=== PATIENT | female | born 1975 | race Two or more races ===

== ENCOUNTER 2019-04-28 11:38 | Emergency (ER) | payer OTHER ==
[~2019-04-28] VITALS: Ht 157.5 cm; Wt 79.4 kg
[2019-04-28 12:01] VITALS: BP 129/79
[2019-04-28] MEDS ORDERED: KETOROLAC TROMETH 60MG/2ML VIAL IM ONE (12:30)
== END 2019-04-28 13:56 | disposition home or self-care (01) ==
LOC: ER 11:38
DX: G56.01 Carpal tunnel syndrome, right upper limb (principal); M54.2 Cervicalgia; E11.9 Type 2 diabetes mellitus without complications
CPT/HCPCS: 29125; 73110; 73130; 96372; 99283; J1885

== ENCOUNTER 2019-10-23 14:28 | Emergency (ER) | payer MEDICAID ==
[~2019-10-23] VITALS: Ht 157.5 cm; Wt 75.7 kg
[2019-10-23 15:48] VITALS: BP 126/78
== END 2019-10-23 16:50 | disposition home or self-care (01) ==
LOC: ER 14:28
DX: H66.93 Otitis media, unspecified, bilateral (principal)

== ENCOUNTER 2022-05-21 08:47 | Inpatient (IN) | payer MEDICAID, OTHER ==
[2022-05-21] VITALS (34 sets, daily range): BP systolic 78–164; BP diastolic 35–62
[~2022-05-21] VITALS: Ht 157.5 cm; Wt 66.6 kg
[2022-05-21] MEDS ORDERED: SODIUM BICARBONATE 8.4% INJ 50ML SYRINGE ONE ×2 (09:00→09:38)
[2022-05-21] MEDS ORDERED: InsuLIN REG 1unit/0.01ml Soln (100units/ml) IV ONE ×4 (09:15→17:15)
[2022-05-21] MEDS ORDERED: PIPERACILLIN-TAZOB 3.375GM 100 ML IV ONE (09:15)
[2022-05-21] MEDS ORDERED: SODIUM CHLORIDE 0.9% 2,100 ML IV ONE (09:30)
[2022-05-21] MEDS ORDERED: SODIUM BICARBONATE 8.4 % INJ 50ML VIAL IV ONE ×2 (09:30→21:00)
[2022-05-21] MEDS: SODIUM BICARBONATE 8.4 % INJ 50ML VIAL IV ONE ×2 (09:44→09:58)
[2022-05-21 09:58] LABS: Mean Corpuscular Hgb Conc. 27.7 g/dL (32.0-36.0); Red Blood Cells 4.83 10^6/uL (4.0-5.20)
[2022-05-21 10:00] LABS: Hematocrit 49.8 % (36.0-46.0); Hemoglobin 13.8 g/dL (12.2-16.2); Mean Corpuscular Hemoglobin 28.6 pg (28.0-32.0); Mean Corpuscular Volume 103.1 fL (80.0-100.0); Red Cell Distribution Width 15.1 % (11.8-14.3); White Blood Cell 24.5 10^3/uL (4.4-10.8)
[2022-05-21 10:03] LABS: Basophils % (manual) 0 (0.0-2.0); Blast Cells 0; Eosinophils % (manual) 0 (0-7); Myelocytes % 0; Promyelocytes % 0; Reactive Lymphocytes 0
[2022-05-21 10:21] LABS: Urine Bacteria FEW /hpf (None Seen); Urine Blood 3+ /uL (Negative); Urine Mucus FEW (None Seen); Urine Specific Gravity 1.024 (1.001-1.035); Urine WBC 2 /hpf (0 - 5)
[2022-05-21] MEDS ORDERED: SODIUM CHLORIDE 0.9% 1,000 ML IV ONE ×2 (10:30→12:00)
[2022-05-21 10:47] LABS: Alcohol, Urine < 3.0 mg/dL (0-10); Amphetamine Screen, Urine NEGATIVE (NEGATIVE); Barbiturate Scree,Urine NEGATIVE (NEGATIVE); Cannabinoid Screen, Urine NEGATIVE (NEGATIVE)
[2022-05-21 10:48] LABS: Benzodiazephine Screen, Urine NEGATIVE (NEGATIVE); Cocaine Screen, Urine NEGATIVE (NEGATIVE); Opiate Scree,Urine NEGATIVE (NEGATIVE); Phencyclidine Screen, Urine NEGATIVE (NEGATIVE)
[2022-05-21 11:33] LABS: Band Neutrophils % (manual) 41; Lymphocytes % (manual) 19 (10.0-50.0); Metamyelocytes % 9; Monocytes % (manual) 5 (0-12)
[2022-05-21 11:59] LABS: Basophils # (auto) 0 10 ^3/uL (0-0.2); Basophils % (auto) 0.2 % (0.0-2.0); Eosinophils # (auto) 0.6 10 ^3/uL (0-0.8); Eosinophils % (auto) 2.4 % (0.0-7.0); Hematocrit 47.4 % (36.0-46.0); Hemoglobin 13.1 g/dL (12.2-16.2); Lymphocytes # (auto) 2.5 10 ^3/uL (0.4-5.4); Lymphocytes % (auto) 9.6 % (10.0-50.0); Mean Corpuscular Hemoglobin 28.5 pg (28.0-32.0); Mean Corpuscular Hgb Conc. 27.7 g/dL (32.0-36.0); Mean Corpuscular Volume 102.9 fL (80.0-100.0); Monocytes # (auto) 1.7 10 ^3/uL (0-1.3); Monocytes % (auto) 6.5 % (0.0-12.0); Neutrophils # (auto) 20.9 10 ^3/uL (1.6-8.6); Neutrophils % (auto) 81.3 % (37.0-80.0); Nucleated Red Blood Cells % 0.2 %; Red Blood Cells 4.61 10^6/uL (4.0-5.20); White Blood Cell 25.7 10^3/uL (4.4-10.8)
[2022-05-21] MEDS ORDERED: DEXTROSE (50%) 50ML SYRG IV PRN ×2 (12:00→14:30)
[2022-05-21] MEDS ORDERED: InsuLIN R (HUMAN) 100 UNITS in SODIUM CHL 0.9% 99 ML IV SCH ×2 (12:00→14:30)
[2022-05-21] MEDS: ACCU-CHEK COMFORT CURVE STRIP VI SCH ×9 (12:37→22:35)
[2022-05-21 12:41] LABS: Lactic Acid w/Reflex 4.4 mmol/L (0.4-2.0)
[2022-05-21 12:58] LABS: BUN/Creatinine Ratio 26.4; Magnesium 2.1 mg/dL (1.6-2.6); Phosphorus 1.5 mg/dL (2.5-4.90); Potassium 3.3 mmol/L (3.5-5.1)
[2022-05-21 13:01] LABS: Calcium 5.7 mg/dL (8.5-10.1)
[2022-05-21] MEDS ORDERED: VANCOMYCIN 1GM/250ML 250 ML IV ONE (13:15)
[2022-05-21] MEDS ORDERED: ASPirin 300 MG RECTAL SUPP PR ONE (13:30)
[2022-05-21 13:37] LABS: Alanine Aminotransferase 27 U/L (13-56); Albumin 2.3 g/dL (3.4-5.0); Anion Gap 20 (5-15); Aspartate Aminotransferase 97 U/L (15-37); BUN/Creatinine Ratio 21.1; Blood Urea Nitrogen 50 mg/dL (7-18); Chloride 97 mmol/L (98-107); GFR African American 28 mL/min; GFR Non-African American 23 mL/min; Magnesium 3.5 mg/dL (1.6-2.6); Sodium 122 mmol/L (136-145)
[2022-05-21 13:39] LABS: Alkaline Phosphatase 295 U/L (45-117); Bilirubin, Total 0.5 mg/dL (0.2-1.0); Total Protein 7.3 g/dL (6.4-8.2)
[2022-05-21 13:46] LABS: Carbon Dioxide 5 mmol/L (21-32); Glucose 670 mg/dL (74-106)
[2022-05-21 13:47] LABS: Blood Alcohol < 3.0 mg/dL (0-5); Potassium 3.3 mmol/L (3.5-5.1)
[2022-05-21] MEDS ORDERED: LACTATED RINGER'S 1,000 ML IV SCH (14:30)
[2022-05-21] MEDS ORDERED: MORPHINE SULFATE INJ 2 MG/ml SYRG IV PRN (14:30)
[2022-05-21] MEDS ORDERED: PANTOPRAZOLE 40 MG/10 ML VIAL INJ IV ONE (14:30)
[2022-05-21] MEDS ORDERED: INSULIN LANTUS (GLARGINE) 1 /0.01ml (100units/ml) SC ONE (14:30)
[2022-05-21] MEDS ORDERED: NITROGLYCERIN 0.4 MG SL TAB SL PRN (14:30)
[2022-05-21] MEDS ORDERED: ROCURONIUM 10MG/ML 10ML VIAL IV ONE ×2 (14:43→14:45)
[2022-05-21] MEDS ORDERED: ETOMIDATE (2MG/ML) 20ML VIAL IV ONE ×2 (14:43→14:45)
[2022-05-21] MEDS ORDERED: MIDAZOLAM DRIP 50 mg/50mL 50 ML IV SCH (14:45)
[2022-05-21] MEDS ORDERED: THIAMINE 100mg/ml INJ (200mg/2ml VIAL) IV ONE (14:45)
[2022-05-21] MEDS ORDERED: MIDAZOLAM DRIP 50 mg/50mL 50 ML IV ONE (14:49)
[2022-05-21] MEDS ORDERED: LACTATED RINGER'S 1,000 ML IV ONE ×2 (15:00→17:15)
[2022-05-21] MEDS: PROPOFOL 100 ML IV SCH (15:00)
[2022-05-21] MEDS ORDERED: InsuLIN REG 1unit/0.01ml Soln (100units/ml) ONE (15:10)
[2022-05-21] MEDS ORDERED: LACTATED RINGER'S 500 ML IV ONE (15:15)
[2022-05-21] MEDS: MIDAZOLAM DRIP 50 mg/50mL 50 ML IV SCH (15:24)
[2022-05-21 16:09] LABS: Anion Gap 19 (5-15); BUN/Creatinine Ratio 23.9; Blood Urea Nitrogen 51 mg/dL (7-18); Chloride 114 mmol/L (98-107); GFR African American 32 mL/min; GFR Non-African American 26 mL/min; Magnesium 2.5 mg/dL (1.6-2.6); Phosphorus 1.7 mg/dL (2.5-4.90); Potassium 4.9 mmol/L (3.5-5.1); Sodium 139 mmol/L (136-145)
[2022-05-21 16:47] LABS: Carbon Dioxide 6 mmol/L (21-32); Glucose 699 mg/dL (74-106)
[2022-05-21] MEDS: fentaNYL Drip 2500mCg/250mlNS 250 ML IV SCH (16:53)
[2022-05-21] MEDS ORDERED: NOREPINEPHRINE 8 MG/250ML KIT 250 ML IV ONE (17:13)
[2022-05-21] MEDS ORDERED: SODIUM BICARBONATE 50ML VIAL 50 ML in SOD CHL 0.45% 1,000 ML IV SCH (17:15)
[2022-05-21] MEDS: NOREPINEPHRINE 8 MG/250ML KIT 250 ML IV SCH (17:20)
[2022-05-21] MEDS: PIPERACILLIN-TAZOB 3.375GM 100 ML IV SCH (17:57)
[2022-05-21] MEDS ORDERED: SODIUM CHLORIDE 0.9% 1,000 ML IV SCH (18:00)
[2022-05-21] MEDS ORDERED: SODIUM BICARBONATE 50ML VIAL 100 ML in SOD CHL 0.45% 1,000 ML IV SCH (21:00)
[2022-05-21 22:06] LABS: Anion Gap 15 (5-15); BUN/Creatinine Ratio 21.9; Blood Urea Nitrogen 55 mg/dL (7-18); Calcium 7.9 mg/dL (8.5-10.1); Chloride 118 mmol/L (98-107); GFR African American 26 mL/min; GFR Non-African American 22 mL/min; Potassium 4.7 mmol/L (3.5-5.1); Sodium 141 mmol/L (136-145)
[2022-05-21 22:37] LABS: Carbon Dioxide 8 mmol/L (21-32); Glucose 414 mg/dL (74-106)
[2022-05-22] VITALS (103 sets, daily range): BP systolic 90–133; BP diastolic 28–72
[2022-05-22] MEDS: ACCU-CHEK COMFORT CURVE STRIP VI SCH ×16 (00:17→22:30)
[2022-05-22] MEDS ORDERED: SODIUM BICARBONATE 8.4 % INJ 50ML VIAL IV ONE (01:00)
[2022-05-22] MEDS ORDERED: SODIUM BICARBONATE 8.4% INJ 50ML SYRINGE ONE (01:11)
[2022-05-22] MEDS: SODIUM BICARBONATE 50ML VIAL 150 ML in SOD CHL 0.45% 1,000 ML IV SCH ×2 (01:25→08:40)
[2022-05-22] MEDS: InsuLIN R (HUMAN) 100 UNITS in SODIUM CHL 0.9% 99 ML IV SCH ×2 (01:30→22:43)
[2022-05-22] MEDS: PIPERACILLIN-TAZOB 3.375GM 100 ML IV SCH ×3 (01:41→17:03)
[2022-05-22] MEDS: MIDAZOLAM DRIP 50 mg/50mL 50 ML IV SCH ×4 (04:16→20:55)
[2022-05-22 05:02] LABS: BUN/Creatinine Ratio 21.5; Potassium 3.6 mmol/L (3.5-5.1)
[2022-05-22 05:05] LABS: Albumin 1.7 g/dL (3.4-5.0); Bilirubin, Total 0.4 mg/dL (0.2-1.0); Total Protein 6.3 g/dL (6.4-8.2)
[2022-05-22] MEDS: fentaNYL Drip 2500mCg/250mlNS 250 ML IV SCH ×2 (06:27→19:13)
[2022-05-22] MEDS: NOREPINEPHRINE 8 MG/250ML KIT 250 ML IV SCH ×2 (06:40→22:31)
[2022-05-22 07:34] LABS: Calcium 8.2 mg/dL (8.5-10.1); Potassium 3.4 mmol/L (3.5-5.1)
[2022-05-22 07:36] LABS: BUN/Creatinine Ratio 21.5
[2022-05-22 07:57] LABS: Hematocrit 41.3 % (36.0-46.0); Hemoglobin 13.5 g/dL (12.2-16.2); Mean Corpuscular Hemoglobin 27.5 pg (28.0-32.0); Mean Corpuscular Hgb Conc. 32.8 g/dL (32.0-36.0); Mean Corpuscular Volume 83.7 fL (80.0-100.0); Red Blood Cells 4.93 10^6/uL (4.0-5.20); Red Cell Distribution Width 13.5 % (11.8-14.3); White Blood Cell 19.7 10^3/uL (4.4-10.8)
[2022-05-22 07:59] LABS: Basophils % (manual) 0 (0.0-2.0); Blast Cells 0; Eosinophils % (manual) 0 (0-7); Myelocytes % 0; Promyelocytes % 0; Reactive Lymphocytes 0
[2022-05-22 08:38] LABS: Band Neutrophils % (manual) 32; Lymphocytes % (manual) 5 (10.0-50.0); Metamyelocytes % 7; Monocytes % (manual) 4 (0-12)
[2022-05-22] MEDS: PANTOPRAZOLE 40 MG/10 ML VIAL INJ IV SCH (10:00)
[2022-05-22] MEDS: THIAMINE 100mg/ml INJ (200mg/2ml VIAL) IV SCH (10:00)
[2022-05-22] MEDS: INSULIN LANTUS (GLARGINE) 1 /0.01ml (100units/ml) SC SCH (10:01)
[2022-05-22] MEDS ORDERED: ACETAMINOPHEN 650 MG RECT SUPP PR PRN (11:30)
[2022-05-22 12:28] LABS: Partial Thromboplastin Time 34.9 sec (24.6-33.4)
[2022-05-22] MEDS ORDERED: BUMETANIDE 2.5mg/10ml (0.25 mg/ml) INJ IV ONE (14:15)
[2022-05-22] MEDS ORDERED: SODIUM BICARBONATE 50ML VIAL 100 ML in SOD CHL 0.45% 1,000 ML IV SCH (14:15)
[2022-05-22] MEDS ORDERED: CLINDAMYCIN 600MG IV 50 ML IV ONE (14:15)
[2022-05-22] MEDS: PROPOFOL 100 ML IV SCH (15:00)
[2022-05-22] MEDS: D5W/SOD CHL 0.45% 1,000 ML IV SCH ×2 (16:30→23:26)
[2022-05-22 18:38] LABS: Albumin 1.2 g/dL (3.4-5.0)
[2022-05-22 18:41] LABS: BUN/Creatinine Ratio 17.9
[2022-05-22 18:43] LABS: Bilirubin, Total 0.3 mg/dL (0.2-1.0); Total Protein 4.8 g/dL (6.4-8.2)
[2022-05-22] MEDS ORDERED: LIDOCAINE 1% (LOCAL ANESTH.) PF 5ml SDV ID ONE (18:45)
[2022-05-22 18:47] LABS: Potassium 2.5 mmol/L (3.5-5.1)
[2022-05-22] MEDS ORDERED: POTASSIUM CHL 20MEQ/100ML 300 ML IV ONE (19:01)
[2022-05-22] MEDS: POTASSIUM CHL 20MEQ/100ML 100 ML IV SCH ×3 (19:14→22:45)
[2022-05-22] MEDS: SODIUM CHLOR 0.9% PF (SALINE LOCK) 10ML VIAL/SYR IV SCH (22:29)
[2022-05-22] MEDS: CLINDAMYCIN 600MG IV 50 ML IV SCH (22:30)
[2022-05-23] VITALS (103 sets, daily range): BP systolic 96–129; BP diastolic 38–69
[2022-05-23] MEDS: ACCU-CHEK COMFORT CURVE STRIP VI SCH ×12 (00:07→20:00)
[2022-05-23 00:21] LABS: BUN/Creatinine Ratio 17.2; Calcium 6.9 mg/dL (8.5-10.1); Magnesium 1.6 mg/dL (1.6-2.6); Potassium 3.1 mmol/L (3.5-5.1)
[2022-05-23] MEDS: PIPERACILLIN-TAZOB 3.375GM 100 ML IV SCH ×3 (00:54→17:17)
[2022-05-23] MEDS ORDERED: POTASSIUM CHL 20MEQ/100ML 300 ML IV ONE (01:20)
[2022-05-23] MEDS: POTASSIUM CHL 20MEQ/100ML 100 ML IV SCH ×3 (02:42→05:22)
[2022-05-23] MEDS: MIDAZOLAM DRIP 50 mg/50mL 50 ML IV SCH ×2 (02:51→14:25)
[2022-05-23] MEDS: CLINDAMYCIN 600MG IV 50 ML IV SCH ×2 (05:56→14:04)
[2022-05-23 06:27] LABS: Basophils # (auto) 0 10 ^3/uL (0-0.2); Basophils % (auto) 0.1 % (0.0-2.0); Eosinophils # (auto) 0.1 10 ^3/uL (0-0.8); Eosinophils % (auto) 0.7 % (0.0-7.0); Hematocrit 32.4 % (36.0-46.0); Hemoglobin 10.7 g/dL (12.2-16.2); Lymphocytes # (auto) 0.8 10 ^3/uL (0.4-5.4); Lymphocytes % (auto) 4.9 % (10.0-50.0); Mean Corpuscular Hemoglobin 27.3 pg (28.0-32.0); Mean Corpuscular Volume 82.9 fL (80.0-100.0); Monocytes # (auto) 0.7 10 ^3/uL (0-1.3); Monocytes % (auto) 4.3 % (0.0-12.0); Neutrophils # (auto) 14.2 10 ^3/uL (1.6-8.6); Nucleated Red Blood Cells % 0.3 %; Red Blood Cells 3.91 10^6/uL (4.0-5.20); Red Cell Distribution Width 13.7 % (11.8-14.3); White Blood Cell 15.7 10^3/uL (4.4-10.8)
[2022-05-23 06:46] LABS: BUN/Creatinine Ratio 15.7; Calcium 7.2 mg/dL (8.5-10.1); Potassium 3.7 mmol/L (3.5-5.1)
[2022-05-23] MEDS ORDERED: BUMETANIDE 2.5mg/10ml (0.25 mg/ml) INJ IV ONE (09:45)
[2022-05-23] MEDS: PANTOPRAZOLE 40 MG/10 ML VIAL INJ IV SCH (10:04)
[2022-05-23] MEDS: THIAMINE 100mg/ml INJ (200mg/2ml VIAL) IV SCH (10:04)
[2022-05-23] MEDS: INSULIN LANTUS (GLARGINE) 1 /0.01ml (100units/ml) SC SCH (10:15)
[2022-05-23] MEDS: SODIUM CHLOR 0.9% PF (SALINE LOCK) 10ML VIAL/SYR IV SCH ×2 (10:15→22:00)
[2022-05-23] MEDS: InsuLIN R (HUMAN) 100 UNITS in SODIUM CHL 0.9% 99 ML IV SCH (14:25)
[2022-05-23] MEDS ORDERED: D5W/SOD CHL 0.45% 1,000 ML IV SCH (14:45)
[2022-05-23] MEDS: PROPOFOL 100 ML IV SCH (15:00)
[2022-05-23] MEDS ORDERED: DEXTROSE (50%) 50ML SYRG IV PRN (15:30)
[2022-05-23] MEDS: InsuLIN REG 1unit/0.01ml Soln (100units/ml) SC SCH ×2 (16:19→20:00)
[2022-05-23] MEDS: FUROSEMIDE INJECTION 100 MG in SODIUM CHL 0.9% 100 ML IV SCH (17:12)
[2022-05-23] MEDS: fentaNYL Drip 2500mCg/250mlNS 250 ML IV SCH (17:34)
[2022-05-23] MEDS: ALBUTEROL SULF 2.5 MG/0.5ML(0.5%) NEB SOLN NEB SCH (18:18)
[2022-05-24] VITALS (106 sets, daily range): BP systolic 34–169; BP diastolic 20–91
[2022-05-24] MEDS: CLINDAMYCIN 900MG IV 50 ML IV SCH ×4 (00:10→22:14)
[2022-05-24] MEDS: FUROSEMIDE INJECTION 100 MG in SODIUM CHL 0.9% 100 ML IV SCH ×2 (00:12→01:54)
[2022-05-24] MEDS: ACCU-CHEK COMFORT CURVE STRIP VI SCH ×6 (00:13→20:00)
[2022-05-24] MEDS: InsuLIN REG 1unit/0.01ml Soln (100units/ml) SC SCH ×6 (00:14→20:00)
[2022-05-24] MEDS: ALBUTEROL SULF 2.5 MG/0.5ML(0.5%) NEB SOLN NEB SCH ×4 (00:41→18:52)
[2022-05-24] MEDS: PIPERACILLIN-TAZOB 3.375GM 100 ML IV SCH ×3 (01:56→17:00)
[2022-05-24 04:19] LABS: Hematocrit 30.3 % (36.0-46.0); Hemoglobin 10.1 g/dL (12.2-16.2); Mean Corpuscular Hemoglobin 27.8 pg (28.0-32.0); Mean Corpuscular Hgb Conc. 33.3 g/dL (32.0-36.0); Mean Corpuscular Volume 83.4 fL (80.0-100.0); Red Blood Cells 3.63 10^6/uL (4.0-5.20); Red Cell Distribution Width 14.2 % (11.8-14.3)
[2022-05-24 04:28] LABS: Basophils % (manual) 0 (0.0-2.0); Blast Cells 0; Metamyelocytes % 0; Promyelocytes % 0; Reactive Lymphocytes 0
[2022-05-24 04:39] LABS: Albumin 1.1 g/dL (3.4-5.0); Calcium 6.9 mg/dL (8.5-10.1); Magnesium 1.6 mg/dL (1.6-2.6); Potassium 3.5 mmol/L (3.5-5.1)
[2022-05-24 04:41] LABS: BUN/Creatinine Ratio 14.4
[2022-05-24 04:44] LABS: Bilirubin, Total 0.5 mg/dL (0.2-1.0); Phosphorus 1.7 mg/dL (2.5-4.90); Total Protein 5.2 g/dL (6.4-8.2)
[2022-05-24 06:46] LABS: Band Neutrophils % (manual) 25; Eosinophils % (manual) 2 (0-7); Lymphocytes % (manual) 5 (10.0-50.0); Monocytes % (manual) 3 (0-12); Myelocytes % 1
[2022-05-24] MEDS: MIDAZOLAM DRIP 50 mg/50mL 50 ML IV SCH ×3 (08:00→20:00)
[2022-05-24] MEDS: fentaNYL Drip 2500mCg/250mlNS 250 ML IV SCH ×2 (09:43→20:30)
[2022-05-24] MEDS ORDERED: HEPARIN SODIUM (PORCINE) 5000 UNITS/ML 1ML VIAL IV ONE (09:45)
[2022-05-24] MEDS: SODIUM CHLOR 0.9% PF (SALINE LOCK) 10ML VIAL/SYR IV SCH ×2 (10:00→22:15)
[2022-05-24] MEDS ORDERED: SODIUM CHL 0.9% 1000 ML BAG XX ONE (10:15)
[2022-05-24] MEDS: INSULIN LANTUS (GLARGINE) 1 /0.01ml (100units/ml) SC SCH (10:42)
[2022-05-24] MEDS: THIAMINE 100mg/ml INJ (200mg/2ml VIAL) IV SCH (13:22)
[2022-05-24] MEDS: PANTOPRAZOLE 40 MG/10 ML VIAL INJ IV SCH (13:23)
[2022-05-24] MEDS: NOREPINEPHRINE 8 MG/250ML KIT 250 ML IV SCH (13:56)
[2022-05-24] MEDS: PROPOFOL 100 ML IV SCH (15:00)
[2022-05-24] MEDS: Glucerna 1.2 Cal 1Liter BOTTLE GT SCH (20:00)
[2022-05-25] VITALS (108 sets, daily range): BP systolic 80–186; BP diastolic 36–88
[2022-05-25] MEDS: NOREPINEPHRINE 8 MG/250ML KIT 250 ML IV SCH ×2 (00:01→18:53)
[2022-05-25] MEDS: ALBUTEROL SULF 2.5 MG/0.5ML(0.5%) NEB SOLN NEB SCH ×4 (00:34→18:17)
[2022-05-25] MEDS: PIPERACILLIN-TAZOB 3.375GM 100 ML IV SCH ×3 (01:07→17:11)
[2022-05-25] MEDS: ACCU-CHEK COMFORT CURVE STRIP VI SCH ×6 (04:00→20:00)
[2022-05-25] MEDS: InsuLIN REG 1unit/0.01ml Soln (100units/ml) SC SCH ×6 (04:00→20:00)
[2022-05-25 04:08] LABS: Calcium 6.8 mg/dL (8.5-10.1)
[2022-05-25 04:10] LABS: BUN/Creatinine Ratio 11.3
[2022-05-25 04:12] LABS: Hematocrit 26.3 % (36.0-46.0); Mean Corpuscular Hemoglobin 27.2 pg (28.0-32.0); Mean Corpuscular Hgb Conc. 34.1 g/dL (32.0-36.0); Mean Corpuscular Volume 79.7 fL (80.0-100.0); White Blood Cell 14.9 10^3/uL (4.4-10.8)
[2022-05-25 04:17] LABS: Basophils % (manual) 0 (0.0-2.0); Blast Cells 0; Eosinophils % (manual) 0 (0-7); Myelocytes % 0; Promyelocytes % 0; Reactive Lymphocytes 0
[2022-05-25 04:26] LABS: Potassium 2.9 mmol/L (3.5-5.1)
[2022-05-25 04:51] LABS: Band Neutrophils % (manual) 16; Lymphocytes % (manual) 8 (10.0-50.0); Metamyelocytes % 1; Monocytes % (manual) 5 (0-12)
[2022-05-25] MEDS ORDERED: POTASSIUM CHL 20MEQ/100ML 100 ML IV ONE ×2 (05:30)
[2022-05-25] MEDS: CLINDAMYCIN 900MG IV 50 ML IV SCH ×3 (06:00→21:55)
[2022-05-25] MEDS: MIDAZOLAM DRIP 50 mg/50mL 50 ML IV SCH ×5 (07:00→18:53)
[2022-05-25] MEDS: fentaNYL Drip 2500mCg/250mlNS 250 ML IV SCH ×2 (07:09→18:58)
[2022-05-25] MEDS ORDERED: POTASSIUM PHOSPHATE 44 MEQ in D5W 5% 250 ML IV ONE (09:15)
[2022-05-25 10:00] LABS: BUN/Creatinine Ratio 11.4; Potassium 3.6 mmol/L (3.5-5.1)
[2022-05-25] MEDS: FLORASTOR (S. BOULARDII) 250 MG CAP PO SCH (10:06)
[2022-05-25] MEDS: PANTOPRAZOLE 40 MG/10 ML VIAL INJ IV SCH (10:07)
[2022-05-25] MEDS: THIAMINE 100mg/ml INJ (200mg/2ml VIAL) IV SCH (10:07)
[2022-05-25] MEDS: MAGNESIUM SULFATE 1GM/100ML 100 ML IV SCH ×2 (10:08→11:40)
[2022-05-25] MEDS: SODIUM CHLOR 0.9% PF (SALINE LOCK) 10ML VIAL/SYR IV SCH ×2 (10:09→21:55)
[2022-05-25] MEDS: INSULIN LANTUS (GLARGINE) 1 /0.01ml (100units/ml) SC SCH (10:12)
[2022-05-25] MEDS: PROPOFOL 100 ML IV SCH (15:00)
[2022-05-25 16:32] LABS: Protein, Urine 120.1 mg/dL (0.0-11.9)
[2022-05-25] MEDS: Glucerna 1.2 Cal 1Liter BOTTLE GT SCH (20:00)
[2022-05-26] VITALS (100 sets, daily range): BP systolic 88–141; BP diastolic 39–77
[2022-05-26] MEDS: ALBUTEROL SULF 2.5 MG/0.5ML(0.5%) NEB SOLN NEB SCH ×4 (00:09→18:30)
[2022-05-26] MEDS: PIPERACILLIN-TAZOB 3.375GM 100 ML IV SCH ×3 (01:00→18:53)
[2022-05-26 03:39] LABS: Basophils # (auto) 0 10 ^3/uL (0-0.2); Hemoglobin 7.8 g/dL (12.2-16.2); Lymphocytes # (auto) 1.2 10 ^3/uL (0.4-5.4); Lymphocytes % (auto) 8.7 % (10.0-50.0); Mean Corpuscular Volume 80.8 fL (80.0-100.0); Neutrophils # (auto) 11.3 10 ^3/uL (1.6-8.6); Red Cell Distribution Width 14.3 % (11.8-14.3); White Blood Cell 13.5 10^3/uL (4.4-10.8)
[2022-05-26 03:42] LABS: Basophils % (auto) 0.1 % (0.0-2.0); Eosinophils # (auto) 0.2 10 ^3/uL (0-0.8); Eosinophils % (auto) 1.2 % (0.0-7.0); Hematocrit 22.3 % (36.0-46.0); Mean Corpuscular Hemoglobin 28.2 pg (28.0-32.0); Mean Corpuscular Hgb Conc. 34.9 g/dL (32.0-36.0); Monocytes # (auto) 0.9 10 ^3/uL (0-1.3); Monocytes % (auto) 6.4 % (0.0-12.0); Neutrophils % (auto) 83.6 % (37.0-80.0); Nucleated Red Blood Cells % 0.1 %; Red Blood Cells 2.76 10^6/uL (4.0-5.20)
[2022-05-26 03:56] LABS: Calcium 6.5 mg/dL (8.5-10.1); Potassium 3.7 mmol/L (3.5-5.1)
[2022-05-26] MEDS: ACCU-CHEK COMFORT CURVE STRIP VI SCH ×6 (04:00→20:00)
[2022-05-26] MEDS: InsuLIN REG 1unit/0.01ml Soln (100units/ml) SC SCH ×6 (04:01→20:30)
[2022-05-26 04:06] LABS: BUN/Creatinine Ratio 11.4; Bilirubin, Total 0.5 mg/dL (0.2-1.0); Magnesium 2.4 mg/dL (1.6-2.6); Phosphorus 3.6 mg/dL (2.5-4.90); Total Protein 5.2 g/dL (6.4-8.2)
[2022-05-26] MEDS: CLINDAMYCIN 900MG IV 50 ML IV SCH ×3 (06:24→22:15)
[2022-05-26] MEDS: MIDAZOLAM DRIP 50 mg/50mL 50 ML IV SCH ×3 (06:40→13:01)
[2022-05-26] MEDS: fentaNYL Drip 2500mCg/250mlNS 250 ML IV SCH ×2 (06:40→19:01)
[2022-05-26] MEDS ORDERED: SODIUM CHL 0.9% 1000 ML BAG XX ONE (09:30)
[2022-05-26] MEDS: FLORASTOR (S. BOULARDII) 250 MG CAP PO SCH (09:45)
[2022-05-26] MEDS: THIAMINE 100mg/ml INJ (200mg/2ml VIAL) IV SCH (09:46)
[2022-05-26] MEDS: PANTOPRAZOLE 40 MG/10 ML VIAL INJ IV SCH (09:46)
[2022-05-26] MEDS: SODIUM CHLOR 0.9% PF (SALINE LOCK) 10ML VIAL/SYR IV SCH ×2 (10:00→22:15)
[2022-05-26] MEDS ORDERED: VANCOMYCIN PER PHARMACY 0 MG IV SCH (12:15)
[2022-05-26] MEDS: LACTULOSE 20Gm/30ML SOLN PO SCH ×2 (13:01→19:02)
[2022-05-26] MEDS ORDERED: VANCOMYCIN 1GM/250ML 250 ML IV ONE (13:45)
[2022-05-26] MEDS: PROPOFOL 100 ML IV SCH (15:00)
[2022-05-26] MEDS: MUPIROCIN 2% OINT 15gm or 22gm FOR MRSA NARES EACHNOSTRI SCH (22:14)
[2022-05-27] VITALS (107 sets, daily range): BP systolic 98–142; BP diastolic 48–81
[2022-05-27] MEDS: ACCU-CHEK COMFORT CURVE STRIP VI SCH ×6 (00:22→21:28)
[2022-05-27] MEDS: InsuLIN REG 1unit/0.01ml Soln (100units/ml) SC SCH ×6 (00:23→21:26)
[2022-05-27] MEDS: ALBUTEROL SULF 2.5 MG/0.5ML(0.5%) NEB SOLN NEB SCH ×4 (00:38→18:49)
[2022-05-27] MEDS: PIPERACILLIN-TAZOB 3.375GM 100 ML IV SCH ×3 (02:49→18:51)
[2022-05-27 03:37] LABS: Basophils # (auto) 0 10 ^3/uL (0-0.2); Eosinophils # (auto) 0.1 10 ^3/uL (0-0.8); Eosinophils % (auto) 0.8 % (0.0-7.0); Hemoglobin 7.4 g/dL (12.2-16.2); White Blood Cell 16.4 10^3/uL (4.4-10.8)
[2022-05-27 03:39] LABS: Basophils % (auto) 0.2 % (0.0-2.0); Hematocrit 22.2 % (36.0-46.0); Lymphocytes % (auto) 6.2 % (10.0-50.0); Mean Corpuscular Hemoglobin 27.2 pg (28.0-32.0); Mean Corpuscular Hgb Conc. 33.2 g/dL (32.0-36.0); Mean Corpuscular Volume 81.9 fL (80.0-100.0); Monocytes # (auto) 0.7 10 ^3/uL (0-1.3); Monocytes % (auto) 4.5 % (0.0-12.0); Neutrophils # (auto) 14.5 10 ^3/uL (1.6-8.6); Neutrophils % (auto) 88.3 % (37.0-80.0); Red Blood Cells 2.71 10^6/uL (4.0-5.20); Red Cell Distribution Width 14.4 % (11.8-14.3)
[2022-05-27 03:52] LABS: INR 1.11 (0.9-1.15); Partial Thromboplastin Time 37.9 sec (24.6-33.4)
[2022-05-27 04:08] LABS: Calcium 6.1 mg/dL (8.5-10.1); Potassium 3.6 mmol/L (3.5-5.1)
[2022-05-27 04:11] LABS: BUN/Creatinine Ratio 11.7; Bilirubin, Total 0.5 mg/dL (0.2-1.0); Total Protein 5.3 g/dL (6.4-8.2)
[2022-05-27] MEDS: LACTULOSE 20Gm/30ML SOLN PO SCH ×4 (06:00→23:53)
[2022-05-27] MEDS: CLINDAMYCIN 900MG IV 50 ML IV SCH (06:00)
[2022-05-27] MEDS: SODIUM CHLOR 0.9% PF (SALINE LOCK) 10ML VIAL/SYR IV SCH ×2 (08:39→23:52)
[2022-05-27] MEDS: PANTOPRAZOLE 40 MG/10 ML VIAL INJ IV SCH (08:54)
[2022-05-27] MEDS: MUPIROCIN 2% OINT 15gm or 22gm FOR MRSA NARES EACHNOSTRI SCH ×2 (08:54→23:52)
[2022-05-27] MEDS: THIAMINE 100mg/ml INJ (200mg/2ml VIAL) IV SCH (08:54)
[2022-05-27] MEDS: FLORASTOR (S. BOULARDII) 250 MG CAP PO SCH (08:55)
[2022-05-27] MEDS ORDERED: VANCOMYCIN 1GM/250ML 250 ML IV ONE (11:00)
[2022-05-27] MEDS: INSULIN LANTUS (GLARGINE) 1 /0.01ml (100units/ml) SC SCH (11:36)
[2022-05-27] MEDS: PROPOFOL 100 ML IV SCH (13:04)
[2022-05-27] MEDS: MIDAZOLAM DRIP 50 mg/50mL 50 ML IV SCH ×2 (13:21→21:34)
[2022-05-27] MEDS ORDERED: metroNIDAZOLE 500 MG TAB PO ONE (13:30)
[2022-05-27] MEDS ORDERED: FLUCONAZOLE 200MG/100ML 100 ML IV ONE (13:30)
[2022-05-27] MEDS: NOREPINEPHRINE 8 MG/250ML KIT 250 ML IV SCH (15:51)
[2022-05-27] MEDS: metroNIDAZOLE 500 MG TAB PO SCH ×2 (18:51→23:53)
[2022-05-28] VITALS (99 sets, daily range): BP systolic 114–166; BP diastolic 61–90
[2022-05-28] MEDS: InsuLIN REG 1unit/0.01ml Soln (100units/ml) SC SCH ×6 (00:03→20:07)
[2022-05-28] MEDS: ACCU-CHEK COMFORT CURVE STRIP VI SCH ×6 (00:03→20:21)
[2022-05-28] MEDS: ALBUTEROL SULF 2.5 MG/0.5ML(0.5%) NEB SOLN NEB SCH ×4 (00:21→18:00)
[2022-05-28] MEDS: PIPERACILLIN-TAZOB 3.375GM 100 ML IV SCH ×2 (01:43→09:15)
[2022-05-28 03:40] LABS: Red Blood Cells 3.45 10^6/uL (4.0-5.20)
[2022-05-28 03:42] LABS: Hematocrit 27.9 % (36.0-46.0); Hemoglobin 9.3 g/dL (12.2-16.2); Mean Corpuscular Hemoglobin 26.9 pg (28.0-32.0); Mean Corpuscular Hgb Conc. 33.2 g/dL (32.0-36.0); Mean Corpuscular Volume 80.9 fL (80.0-100.0); Red Cell Distribution Width 14.4 % (11.8-14.3); White Blood Cell 22.4 10^3/uL (4.4-10.8)
[2022-05-28 03:53] LABS: Basophils % (manual) 0 (0.0-2.0); Blast Cells 0; Metamyelocytes % 0; Promyelocytes % 0; Reactive Lymphocytes 0
[2022-05-28 04:01] LABS: Albumin 1.2 g/dL (3.4-5.0); Calcium 6.7 mg/dL (8.5-10.1); Potassium 4.3 mmol/L (3.5-5.1)
[2022-05-28 04:04] LABS: Bilirubin, Total 0.5 mg/dL (0.2-1.0); Total Protein 6.1 g/dL (6.4-8.2)
[2022-05-28] MEDS: fentaNYL Drip 2500mCg/250mlNS 250 ML IV SCH (05:32)
[2022-05-28] MEDS: MIDAZOLAM DRIP 50 mg/50mL 50 ML IV SCH ×2 (05:38→20:29)
[2022-05-28] MEDS: metroNIDAZOLE 500 MG TAB PO SCH ×4 (06:00→23:36)
[2022-05-28] MEDS: LACTULOSE 20Gm/30ML SOLN PO SCH ×2 (06:00→12:00)
[2022-05-28 06:29] LABS: Band Neutrophils % (manual) 8; Eosinophils % (manual) 1 (0-7); Lymphocytes % (manual) 12 (10.0-50.0); Monocytes % (manual) 4 (0-12); Myelocytes % 4
[2022-05-28] MEDS ORDERED: CEFEPIME 1 GM in SODIUM CHL 0.9% 50 ML IV ONE (10:00)
[2022-05-28] MEDS ORDERED: FLUCONAZOLE 200MG/100ML 100 ML IV SCH (10:00)
[2022-05-28] MEDS: PANTOPRAZOLE 40 MG/10 ML VIAL INJ IV SCH (10:45)
[2022-05-28] MEDS: FLORASTOR (S. BOULARDII) 250 MG CAP PO SCH (10:45)
[2022-05-28] MEDS: THIAMINE 100mg/ml INJ (200mg/2ml VIAL) IV SCH (10:46)
[2022-05-28] MEDS: SODIUM CHLOR 0.9% PF (SALINE LOCK) 10ML VIAL/SYR IV SCH ×2 (10:46→23:04)
[2022-05-28] MEDS: MUPIROCIN 2% OINT 15gm or 22gm FOR MRSA NARES EACHNOSTRI SCH ×2 (10:46→23:04)
[2022-05-28] MEDS: INSULIN LANTUS (GLARGINE) 1 /0.01ml (100units/ml) SC SCH (10:49)
[2022-05-28] MEDS: PROPOFOL 100 ML IV SCH (15:00)
[2022-05-28] MEDS: NOREPINEPHRINE 8 MG/250ML KIT 250 ML IV SCH (17:15)
[2022-05-28] MEDS ORDERED: fentaNYL CITRATE 100 MCG/2 ML VL ONE (17:25)
[2022-05-28] MEDS ORDERED: ONDANSETRON HCL 4 MG/2 ML VIAL ONE (17:25)
[2022-05-28] MEDS ORDERED: KETAMINE HCL 10 ML ONE (17:25)
[2022-05-28] MEDS ORDERED: MIDAZOLAM HCL 2MG/2ML 2ml VIAL (1mg/ml) ONE (17:25)
[2022-05-28] MEDS ORDERED: PROPOFOL 10 MG/ML 20 ML IV ONE (17:25)
[2022-05-28] MEDS ORDERED: GLYCOPYRROLATE 0.2 MG/ML 1ML VIAL ONE (17:25)
[2022-05-29] VITALS (103 sets, daily range): BP systolic 116–182; BP diastolic 60–86
[2022-05-29] MEDS: ALBUTEROL SULF 2.5 MG/0.5ML(0.5%) NEB SOLN NEB SCH ×4 (00:33→18:46)
[2022-05-29 00:58] LABS: Hematocrit 26.6 % (36.0-46.0); Hemoglobin 8.8 g/dL (12.2-16.2)
[2022-05-29] MEDS: ACCU-CHEK COMFORT CURVE STRIP VI SCH ×6 (03:33→20:12)
[2022-05-29] MEDS: InsuLIN REG 1unit/0.01ml Soln (100units/ml) SC SCH ×6 (03:33→20:18)
[2022-05-29] MEDS: fentaNYL Drip 2500mCg/250mlNS 250 ML IV SCH (03:34)
[2022-05-29 04:03] LABS: Hematocrit 25.6 % (36.0-46.0); Hemoglobin 8.5 g/dL (12.2-16.2); Mean Corpuscular Hemoglobin 27.5 pg (28.0-32.0); Mean Corpuscular Hgb Conc. 33.3 g/dL (32.0-36.0); Mean Corpuscular Volume 82.7 fL (80.0-100.0); Red Blood Cells 3.09 10^6/uL (4.0-5.20); Red Cell Distribution Width 14.9 % (11.8-14.3); White Blood Cell 24.5 10^3/uL (4.4-10.8)
[2022-05-29 04:21] LABS: Albumin 1.1 g/dL (3.4-5.0); Basophils % (manual) 0 (0.0-2.0); Blast Cells 0; Calcium 6.5 mg/dL (8.5-10.1); Potassium 4.2 mmol/L (3.5-5.1); Promyelocytes % 0; Reactive Lymphocytes 0
[2022-05-29 04:27] LABS: BUN/Creatinine Ratio 9.6; Bilirubin, Total 0.5 mg/dL (0.2-1.0); Total Protein 5.9 g/dL (6.4-8.2)
[2022-05-29] MEDS: metroNIDAZOLE 500 MG TAB PO SCH ×3 (05:32→19:55)
[2022-05-29 06:28] LABS: Band Neutrophils % (manual) 15; Eosinophils % (manual) 3 (0-7); Lymphocytes % (manual) 6 (10.0-50.0); Metamyelocytes % 1; Monocytes % (manual) 2 (0-12); Myelocytes % 6
[2022-05-29] MEDS ORDERED: SODIUM CHL 0.9% 1000 ML BAG XX ONE (07:00)
[2022-05-29] MEDS: FLORASTOR (S. BOULARDII) 250 MG CAP PO SCH (10:18)
[2022-05-29] MEDS: MUPIROCIN 2% OINT 15gm or 22gm FOR MRSA NARES EACHNOSTRI SCH ×2 (10:19→21:12)
[2022-05-29] MEDS: SODIUM CHLOR 0.9% PF (SALINE LOCK) 10ML VIAL/SYR IV SCH ×2 (10:32→21:12)
[2022-05-29] MEDS: INSULIN LANTUS (GLARGINE) 1 /0.01ml (100units/ml) SC SCH (10:37)
[2022-05-29] MEDS: MIDAZOLAM DRIP 50 mg/50mL 50 ML IV SCH (10:51)
[2022-05-29] MEDS: THIAMINE 100mg/ml INJ (200mg/2ml VIAL) IV SCH (13:31)
[2022-05-29] MEDS: PANTOPRAZOLE 40 MG/10 ML VIAL INJ IV SCH (13:31)
[2022-05-29] MEDS ORDERED: VANCOMYCIN 1GM/250ML 250 ML IV ONE ×2 (14:00→16:00)
[2022-05-29] MEDS: PROPOFOL 100 ML IV SCH (15:00)
[2022-05-29] MEDS: CEFEPIME 1GM/ 50ML 50 ML IV SCH (15:21)
[2022-05-29] MEDS: NOREPINEPHRINE 8 MG/250ML KIT 250 ML IV SCH (17:15)
[2022-05-29] MEDS ORDERED: EPOETIN ALFA-EPBX 10,000 UNIT/1ML VIAL SC ONE (21:00)
[2022-05-30] VITALS (102 sets, daily range): BP systolic 117–212; BP diastolic 63–99
[2022-05-30] MEDS: metroNIDAZOLE 500 MG TAB PO SCH ×4 (00:12→17:33)
[2022-05-30] MEDS: ALBUTEROL SULF 2.5 MG/0.5ML(0.5%) NEB SOLN NEB SCH ×4 (00:20→18:40)
[2022-05-30] MEDS: MIDAZOLAM DRIP 50 mg/50mL 50 ML IV SCH (00:21)
[2022-05-30] MEDS: ACCU-CHEK COMFORT CURVE STRIP VI SCH ×6 (01:51→20:53)
[2022-05-30] MEDS: fentaNYL Drip 2500mCg/250mlNS 250 ML IV SCH (04:07)
[2022-05-30] MEDS: InsuLIN REG 1unit/0.01ml Soln (100units/ml) SC SCH ×6 (04:49→20:53)
[2022-05-30 05:18] LABS: Hematocrit 23.3 % (36.0-46.0); Hemoglobin 7.8 g/dL (12.2-16.2); Mean Corpuscular Hemoglobin 27.5 pg (28.0-32.0); Mean Corpuscular Hgb Conc. 33.7 g/dL (32.0-36.0); Mean Corpuscular Volume 81.4 fL (80.0-100.0); Red Blood Cells 2.86 10^6/uL (4.0-5.20); Red Cell Distribution Width 14.5 % (11.8-14.3); White Blood Cell 22.3 10^3/uL (4.4-10.8)
[2022-05-30 05:24] LABS: Basophils % (manual) 0 (0.0-2.0); Blast Cells 0; Metamyelocytes % 0; Promyelocytes % 0; Reactive Lymphocytes 0
[2022-05-30 05:29] LABS: BUN/Creatinine Ratio 9.7; Calcium 6.9 mg/dL (8.5-10.1); Potassium 3.8 mmol/L (3.5-5.1)
[2022-05-30 06:36] LABS: Band Neutrophils % (manual) 2; Eosinophils % (manual) 1 (0-7); Lymphocytes % (manual) 7 (10.0-50.0); Monocytes % (manual) 4 (0-12); Myelocytes % 4
[2022-05-30] MEDS: PANTOPRAZOLE 40 MG/10 ML VIAL INJ IV SCH (10:12)
[2022-05-30] MEDS: THIAMINE 100mg/ml INJ (200mg/2ml VIAL) IV SCH (10:12)
[2022-05-30] MEDS: FLORASTOR (S. BOULARDII) 250 MG CAP PO SCH (10:12)
[2022-05-30] MEDS: SODIUM CHLOR 0.9% PF (SALINE LOCK) 10ML VIAL/SYR IV SCH ×2 (10:12→22:25)
[2022-05-30] MEDS: MUPIROCIN 2% OINT 15gm or 22gm FOR MRSA NARES EACHNOSTRI SCH ×2 (10:12→22:26)
[2022-05-30] MEDS: CEFEPIME 1GM/ 50ML 50 ML IV SCH ×2 (10:20→22:25)
[2022-05-30] MEDS: INSULIN LANTUS (GLARGINE) 1 /0.01ml (100units/ml) SC SCH (11:40)
[2022-05-30] MEDS: LABETALOL HCL 5 MG/ML 4ML SYRINGE IV PRN ×2 (14:51→20:48)
[2022-05-30] MEDS: PROPOFOL 100 ML IV SCH (15:00)
[2022-05-30] MEDS: NOREPINEPHRINE 8 MG/250ML KIT 250 ML IV SCH (16:49)
[2022-05-30] MEDS: MUPIROCIN 2% OINT 15gm or 22gm TOP SCH (22:26)
[2022-05-31] VITALS (88 sets, daily range): BP systolic 104–190; BP diastolic 48–97
[2022-05-31] MEDS: ALBUTEROL SULF 2.5 MG/0.5ML(0.5%) NEB SOLN NEB SCH ×4 (00:23→18:16)
[2022-05-31] MEDS: ACCU-CHEK COMFORT CURVE STRIP VI SCH ×7 (00:25→23:57)
[2022-05-31] MEDS: metroNIDAZOLE 500 MG TAB PO SCH ×4 (00:25→18:43)
[2022-05-31] MEDS: Glucerna 1.2 Cal 1Liter BOTTLE GT SCH (00:27)
[2022-05-31] MEDS: InsuLIN REG 1unit/0.01ml Soln (100units/ml) SC SCH ×7 (04:00→23:57)
[2022-05-31 04:37] LABS: Basophils # (auto) 0.1 10 ^3/uL (0-0.2); Basophils % (auto) 0.5 % (0.0-2.0); Eosinophils # (auto) 0.1 10 ^3/uL (0-0.8); Eosinophils % (auto) 0.5 % (0.0-7.0); Hematocrit 22.4 % (36.0-46.0); Hemoglobin 7.3 g/dL (12.2-16.2); Lymphocytes # (auto) 0.9 10 ^3/uL (0.4-5.4); Lymphocytes % (auto) 4.9 % (10.0-50.0); Mean Corpuscular Hemoglobin 27.1 pg (28.0-32.0); Mean Corpuscular Hgb Conc. 32.7 g/dL (32.0-36.0); Mean Corpuscular Volume 83.1 fL (80.0-100.0); Monocytes # (auto) 1.1 10 ^3/uL (0-1.3); Monocytes % (auto) 5.5 % (0.0-12.0); Neutrophils % (auto) 88.6 % (37.0-80.0); Red Cell Distribution Width 14.8 % (11.8-14.3); White Blood Cell 19.2 10^3/uL (4.4-10.8)
[2022-05-31 05:03] LABS: BUN/Creatinine Ratio 10.1; Calcium 6.9 mg/dL (8.5-10.1); Potassium 3.8 mmol/L (3.5-5.1)
[2022-05-31] MEDS ORDERED: SODIUM CHL 0.9% 1000 ML BAG XX ONE (07:00)
[2022-05-31] MEDS: CEFEPIME 1GM/ 50ML 50 ML IV SCH ×2 (10:42→22:00)
[2022-05-31] MEDS: MUPIROCIN 2% OINT 15gm or 22gm FOR MRSA NARES EACHNOSTRI SCH (10:42)
[2022-05-31] MEDS: SODIUM CHLOR 0.9% PF (SALINE LOCK) 10ML VIAL/SYR IV SCH ×2 (10:43→22:00)
[2022-05-31] MEDS: FLORASTOR (S. BOULARDII) 250 MG CAP PO SCH (10:43)
[2022-05-31] MEDS: MUPIROCIN 2% OINT 15gm or 22gm TOP SCH ×2 (10:43→22:00)
[2022-05-31] MEDS: PANTOPRAZOLE 40 MG/10 ML VIAL INJ IV SCH (10:43)
[2022-05-31] MEDS: INSULIN LANTUS (GLARGINE) 1 /0.01ml (100units/ml) SC SCH (11:06)
[2022-05-31] MEDS ORDERED: BUMETANIDE 2.5mg/10ml (0.25 mg/ml) INJ IV ONE (14:45)
[2022-05-31] MEDS: PROPOFOL 100 ML IV SCH (15:00)
[2022-05-31] MEDS: MIDAZOLAM DRIP 50 mg/50mL 50 ML IV SCH (15:00)
[2022-05-31] MEDS: fentaNYL Drip 2500mCg/250mlNS 250 ML IV SCH (15:00)
[2022-05-31] MEDS: LABETALOL HCL 5 MG/ML 4ML SYRINGE IV PRN (15:05)
[2022-05-31] MEDS: NOREPINEPHRINE 8 MG/250ML KIT 250 ML IV SCH (17:15)
[2022-05-31] MEDS ORDERED: EPOETIN ALFA-EPBX 10,000 UNIT/1ML VIAL SC ONE (21:00)
[2022-06-01] VITALS (96 sets, daily range): BP systolic 91–188; BP diastolic 55–109
[2022-06-01] MEDS: ALBUTEROL SULF 2.5 MG/0.5ML(0.5%) NEB SOLN NEB SCH ×4 (00:20→18:27)
[2022-06-01] MEDS: CEFEPIME 1GM/ 50ML 50 ML IV SCH ×2 (02:05→22:11)
[2022-06-01 04:16] LABS: Hemoglobin 7.7 g/dL (12.2-16.2); White Blood Cell 17.5 10^3/uL (4.4-10.8)
[2022-06-01 04:18] LABS: Mean Corpuscular Hemoglobin 27.8 pg (28.0-32.0); Mean Corpuscular Hgb Conc. 33.6 g/dL (32.0-36.0); Mean Corpuscular Volume 82.7 fL (80.0-100.0); Red Blood Cells 2.78 10^6/uL (4.0-5.20); Red Cell Distribution Width 14.3 % (11.8-14.3)
[2022-06-01] MEDS: ACCU-CHEK COMFORT CURVE STRIP VI SCH ×6 (04:22→23:50)
[2022-06-01] MEDS: InsuLIN REG 1unit/0.01ml Soln (100units/ml) SC SCH ×6 (04:23→23:53)
[2022-06-01 04:27] LABS: Blast Cells 0; Metamyelocytes % 0; Promyelocytes % 0; Reactive Lymphocytes 0
[2022-06-01 04:36] LABS: BUN/Creatinine Ratio 9.5; Calcium 7.5 mg/dL (8.5-10.1)
[2022-06-01] MEDS: metroNIDAZOLE 500 MG TAB PO SCH ×5 (06:00→23:50)
[2022-06-01] MEDS: FLORASTOR (S. BOULARDII) 250 MG CAP PO SCH (09:57)
[2022-06-01] MEDS: PANTOPRAZOLE 40 MG/10 ML VIAL INJ IV SCH (09:57)
[2022-06-01] MEDS: MUPIROCIN 2% OINT 15gm or 22gm TOP SCH ×2 (09:58→23:06)
[2022-06-01] MEDS: SODIUM CHLOR 0.9% PF (SALINE LOCK) 10ML VIAL/SYR IV SCH ×2 (09:58→22:15)
[2022-06-01] MEDS: INSULIN LANTUS (GLARGINE) 1 /0.01ml (100units/ml) SC SCH (10:05)
[2022-06-01] MEDS ORDERED: BUMETANIDE 2.5mg/10ml (0.25 mg/ml) INJ IV ONE (10:30)
[2022-06-01 10:55] LABS: Band Neutrophils % (manual) 6; Basophils % (manual) 2 (0.0-2.0); Eosinophils % (manual) 1 (0-7); Lymphocytes % (manual) 7 (10.0-50.0); Monocytes % (manual) 7 (0-12); Myelocytes % 1
[2022-06-01] MEDS ORDERED: EPINEPHrine HCL 0.5 ML NEB NEB ONE (11:45)
[2022-06-01] MEDS ORDERED: DexAMETHasone SOD PHOS 4 MG/1ML SDV INJ ONE (11:46)
[2022-06-01] MEDS ORDERED: ROCURONIUM 10MG/ML 10ML VIAL IV ONE (11:56)
[2022-06-01] MEDS ORDERED: ETOMIDATE (2MG/ML) 20ML VIAL IV ONE (11:56)
[2022-06-01] MEDS: PROPOFOL 100 ML IV SCH (15:00)
[2022-06-01] MEDS: MIDAZOLAM DRIP 50 mg/50mL 50 ML IV SCH (15:00)
[2022-06-01] MEDS: fentaNYL Drip 2500mCg/250mlNS 250 ML IV SCH (15:21)
[2022-06-01] MEDS ORDERED: VANCOMYCIN 500 MG in D5W 5% 100 ML IV ONE (15:30)
[2022-06-01] MEDS: NOREPINEPHRINE 8 MG/250ML KIT 250 ML IV SCH (17:15)
[2022-06-02] VITALS (90 sets, daily range): BP systolic 105–174; BP diastolic 37–104
[2022-06-02] MEDS: ALBUTEROL SULF 2.5 MG/0.5ML(0.5%) NEB SOLN NEB SCH ×4 (00:14→18:22)
[2022-06-02] MEDS: metroNIDAZOLE 500 MG TAB PO SCH ×3 (05:00→18:13)
[2022-06-02] MEDS: ACCU-CHEK COMFORT CURVE STRIP VI SCH ×5 (05:06→20:00)
[2022-06-02] MEDS: InsuLIN REG 1unit/0.01ml Soln (100units/ml) SC SCH ×5 (05:11→20:00)
[2022-06-02] MEDS: fentaNYL Drip 2500mCg/250mlNS 250 ML IV SCH ×2 (05:12→21:50)
[2022-06-02 05:28] LABS: Hemoglobin 8.4 g/dL (12.2-16.2); Mean Corpuscular Hemoglobin 27.7 pg (28.0-32.0); Mean Corpuscular Hgb Conc. 33.4 g/dL (32.0-36.0); Red Blood Cells 3.02 10^6/uL (4.0-5.20); Red Cell Distribution Width 14.8 % (11.8-14.3); White Blood Cell 19.2 10^3/uL (4.4-10.8)
[2022-06-02 05:38] LABS: Basophils % (manual) 0 (0.0-2.0); Blast Cells 0; Eosinophils % (manual) 0 (0-7); Promyelocytes % 0; Reactive Lymphocytes 0
[2022-06-02 06:00] LABS: Albumin 1.4 g/dL (3.4-5.0); Calcium 7.5 mg/dL (8.5-10.1); Potassium 3.7 mmol/L (3.5-5.1)
[2022-06-02 06:11] LABS: BUN/Creatinine Ratio 9.9; Bilirubin, Total 0.4 mg/dL (0.2-1.0); Total Protein 6.5 g/dL (6.4-8.2)
[2022-06-02 08:34] LABS: Band Neutrophils % (manual) 2; Lymphocytes % (manual) 18 (10.0-50.0); Metamyelocytes % 4; Monocytes % (manual) 10 (0-12); Myelocytes % 2
[2022-06-02] MEDS ORDERED: SODIUM CHL 0.9% 1000 ML BAG XX ONE (08:45)
[2022-06-02] MEDS: PANTOPRAZOLE 40 MG/10 ML VIAL INJ IV SCH (10:29)
[2022-06-02] MEDS: CEFEPIME 1GM/ 50ML 50 ML IV SCH (10:29)
[2022-06-02] MEDS: FLORASTOR (S. BOULARDII) 250 MG CAP PO SCH (10:30)
[2022-06-02] MEDS: SODIUM CHLOR 0.9% PF (SALINE LOCK) 10ML VIAL/SYR IV SCH ×2 (10:30→22:24)
[2022-06-02] MEDS: MUPIROCIN 2% OINT 15gm or 22gm TOP SCH ×2 (10:30→22:24)
[2022-06-02] MEDS: INSULIN LANTUS (GLARGINE) 1 /0.01ml (100units/ml) SC SCH (10:40)
[2022-06-02] MEDS ORDERED: CEFEPIME 1GM/ 50ML 50 ML IV ONE (14:00)
[2022-06-02] MEDS ORDERED: Glucerna 1.2 Cal 1Liter BOTTLE GT SCH (14:00)
[2022-06-02] MEDS: PROPOFOL 100 ML IV SCH (15:00)
[2022-06-02] MEDS: MIDAZOLAM DRIP 50 mg/50mL 50 ML IV SCH (15:00)
[2022-06-02] MEDS: NOREPINEPHRINE 8 MG/250ML KIT 250 ML IV SCH (17:15)
[2022-06-02] MEDS ORDERED: EPOETIN ALFA-EPBX 10,000 UNIT/1ML VIAL SC ONE (21:00)
[2022-06-03] VITALS (99 sets, daily range): BP systolic 99–201; BP diastolic 35–107
[2022-06-03] MEDS: ACCU-CHEK COMFORT CURVE STRIP VI SCH ×6 (00:14→19:49)
[2022-06-03] MEDS: metroNIDAZOLE 500 MG TAB PO SCH ×4 (00:14→17:32)
[2022-06-03] MEDS: ALBUTEROL SULF 2.5 MG/0.5ML(0.5%) NEB SOLN NEB SCH ×4 (02:08→18:05)
[2022-06-03 02:13] LABS: Hemoglobin 8.9 g/dL (12.2-16.2); Red Cell Distribution Width 14.6 % (11.8-14.3)
[2022-06-03 02:15] LABS: Hematocrit 27.2 % (36.0-46.0); Mean Corpuscular Hemoglobin 27.7 pg (28.0-32.0); Mean Corpuscular Hgb Conc. 32.8 g/dL (32.0-36.0); Mean Corpuscular Volume 84.4 fL (80.0-100.0); Red Blood Cells 3.22 10^6/uL (4.0-5.20); White Blood Cell 20.3 10^3/uL (4.4-10.8)
[2022-06-03 02:19] LABS: Basophils % (manual) 0 (0.0-2.0); Blast Cells 0; Eosinophils % (manual) 0 (0-7); Metamyelocytes % 0; Myelocytes % 0; Promyelocytes % 0; Reactive Lymphocytes 0
[2022-06-03] MEDS ORDERED: METOPROLOL TARTRATE 1MG/1ML-5ML VIAL IV ONE ×2 (02:20→02:30)
[2022-06-03 02:32] LABS: BUN/Creatinine Ratio 9.8; Calcium 7.8 mg/dL (8.5-10.1); Potassium 4.2 mmol/L (3.5-5.1)
[2022-06-03 02:53] LABS: Band Neutrophils % (manual) 1; Lymphocytes % (manual) 9 (10.0-50.0); Monocytes % (manual) 4 (0-12)
[2022-06-03] MEDS: LABETALOL HCL 5 MG/ML 4ML SYRINGE IV PRN ×3 (03:12→22:22)
[2022-06-03] MEDS: InsuLIN REG 1unit/0.01ml Soln (100units/ml) SC SCH ×6 (04:21→19:53)
[2022-06-03] MEDS: FLORASTOR (S. BOULARDII) 250 MG CAP PO SCH (09:36)
[2022-06-03] MEDS: PANTOPRAZOLE 40 MG/10 ML VIAL INJ IV SCH (09:36)
[2022-06-03] MEDS: CEFEPIME 0.5 GM in D5W 5% 50 ML IV SCH (09:37)
[2022-06-03] MEDS: SODIUM CHLOR 0.9% PF (SALINE LOCK) 10ML VIAL/SYR IV SCH ×2 (09:37→22:20)
[2022-06-03] MEDS: MUPIROCIN 2% OINT 15gm or 22gm TOP SCH ×2 (09:37→22:21)
[2022-06-03] MEDS: INSULIN LANTUS (GLARGINE) 1 /0.01ml (100units/ml) SC SCH (09:58)
[2022-06-03] MEDS: METOPROLOL TARTRATE 25 MG TAB PO SCH ×2 (10:20→22:21)
[2022-06-03] MEDS: fentaNYL Drip 2500mCg/250mlNS 250 ML IV SCH (13:57)
[2022-06-03] MEDS: PROPOFOL 100 ML IV SCH (14:37)
[2022-06-03] MEDS: MIDAZOLAM DRIP 50 mg/50mL 50 ML IV SCH (14:37)
[2022-06-03] MEDS ORDERED: VANCOMYCIN 500 MG in D5W 5% 100 ML IV ONE (17:00)
[2022-06-03] MEDS: NOREPINEPHRINE 8 MG/250ML KIT 250 ML IV SCH (17:15)
[2022-06-04] VITALS (69 sets, daily range): BP systolic 96–186; BP diastolic 48–120
[2022-06-04] MEDS: ALBUTEROL SULF 2.5 MG/0.5ML(0.5%) NEB SOLN NEB SCH ×4 (00:11→18:41)
[2022-06-04] MEDS: ACCU-CHEK COMFORT CURVE STRIP VI SCH ×6 (00:15→23:35)
[2022-06-04] MEDS: metroNIDAZOLE 500 MG TAB PO SCH ×5 (00:15→23:35)
[2022-06-04] MEDS: InsuLIN REG 1unit/0.01ml Soln (100units/ml) SC SCH ×6 (00:25→23:35)
[2022-06-04 03:46] LABS: Hemoglobin 8.4 g/dL (12.2-16.2); Red Blood Cells 2.96 10^6/uL (4.0-5.20)
[2022-06-04 03:48] LABS: Hematocrit 24.8 % (36.0-46.0); Mean Corpuscular Hemoglobin 28.3 pg (28.0-32.0); Mean Corpuscular Hgb Conc. 33.8 g/dL (32.0-36.0); Mean Corpuscular Volume 83.7 fL (80.0-100.0); Red Cell Distribution Width 14.7 % (11.8-14.3)
[2022-06-04] MEDS: LABETALOL HCL 5 MG/ML 4ML SYRINGE IV PRN (03:55)
[2022-06-04 03:56] LABS: Basophils % (manual) 0 (0.0-2.0); Blast Cells 0; Eosinophils % (manual) 0 (0-7); Metamyelocytes % 0; Promyelocytes % 0; Reactive Lymphocytes 0
[2022-06-04 04:00] LABS: Albumin 1.5 g/dL (3.4-5.0); Calcium 7.8 mg/dL (8.5-10.1); Potassium 4.1 mmol/L (3.5-5.1)
[2022-06-04 04:02] LABS: BUN/Creatinine Ratio 10.8
[2022-06-04 04:04] LABS: Bilirubin, Total 0.4 mg/dL (0.2-1.0); Total Protein 6.5 g/dL (6.4-8.2)
[2022-06-04] MEDS: fentaNYL Drip 2500mCg/250mlNS 250 ML IV SCH ×2 (05:50→18:26)
[2022-06-04 06:42] LABS: Band Neutrophils % (manual) 6; Lymphocytes % (manual) 10 (10.0-50.0); Monocytes % (manual) 7 (0-12); Myelocytes % 5
[2022-06-04] MEDS: FLORASTOR (S. BOULARDII) 250 MG CAP PO SCH (08:52)
[2022-06-04] MEDS: PANTOPRAZOLE 40 MG/10 ML VIAL INJ IV SCH (08:52)
[2022-06-04] MEDS: SODIUM CHLOR 0.9% PF (SALINE LOCK) 10ML VIAL/SYR IV SCH ×2 (08:52→21:40)
[2022-06-04] MEDS: MUPIROCIN 2% OINT 15gm or 22gm TOP SCH ×2 (08:52→21:41)
[2022-06-04] MEDS: METOPROLOL TARTRATE 25 MG TAB PO SCH ×2 (08:52→21:41)
[2022-06-04] MEDS: INSULIN LANTUS (GLARGINE) 1 /0.01ml (100units/ml) SC SCH (09:13)
[2022-06-04] MEDS: CEFEPIME 0.5 GM in D5W 5% 50 ML IV SCH (09:54)
[2022-06-04] MEDS: PROPOFOL 100 ML IV SCH (15:00)
[2022-06-04] MEDS: MIDAZOLAM DRIP 50 mg/50mL 50 ML IV SCH (15:00)
[2022-06-04] MEDS ORDERED: SODIUM CHL 0.9% 1000 ML BAG XX ONE (15:00)
[2022-06-04] MEDS ORDERED: DEXTROSE (50%) 50ML SYRG IV PRN (15:30)
[2022-06-04] MEDS: NOREPINEPHRINE 8 MG/250ML KIT 250 ML IV SCH (17:15)
[2022-06-04] MEDS ORDERED: CATHFLO ACTIVASE (ALTEPLASE) 2 MG VIAL IV ONE (17:30)
[2022-06-04] MEDS ORDERED: EPOETIN ALFA-EPBX 10,000 UNIT/1ML VIAL SC ONE (21:00)
[2022-06-05] VITALS (67 sets, daily range): BP systolic 99–216; BP diastolic 52–106
[2022-06-05] MEDS: ALBUTEROL SULF 2.5 MG/0.5ML(0.5%) NEB SOLN NEB SCH ×4 (00:05→17:57)
[2022-06-05 04:00] LABS: Hemoglobin 7.9 g/dL (12.2-16.2)
[2022-06-05 04:02] LABS: Mean Corpuscular Hemoglobin 27.5 pg (28.0-32.0); Mean Corpuscular Hgb Conc. 32.8 g/dL (32.0-36.0); Mean Corpuscular Volume 83.9 fL (80.0-100.0); Red Blood Cells 2.86 10^6/uL (4.0-5.20); Red Cell Distribution Width 14.9 % (11.8-14.3)
[2022-06-05 04:09] LABS: Basophils % (manual) 0 (0.0-2.0); Blast Cells 0; Metamyelocytes % 0; Promyelocytes % 0; Reactive Lymphocytes 0
[2022-06-05 04:23] LABS: BUN/Creatinine Ratio 10.7; Calcium 7.9 mg/dL (8.5-10.1); Potassium 4.2 mmol/L (3.5-5.1)
[2022-06-05 05:01] LABS: Band Neutrophils % (manual) 7; Eosinophils % (manual) 1 (0-7); Lymphocytes % (manual) 10 (10.0-50.0); Monocytes % (manual) 10 (0-12); Myelocytes % 1
[2022-06-05] MEDS: ACCU-CHEK COMFORT CURVE STRIP VI SCH ×4 (05:48→23:59)
[2022-06-05] MEDS: metroNIDAZOLE 500 MG TAB PO SCH ×2 (05:48→12:17)
[2022-06-05] MEDS: InsuLIN REG 1unit/0.01ml Soln (100units/ml) SC SCH ×3 (05:49→18:21)
[2022-06-05] MEDS: fentaNYL Drip 2500mCg/250mlNS 250 ML IV SCH (06:27)
[2022-06-05] MEDS ORDERED: SODIUM CHL 0.9% 1000 ML BAG XX ONE (07:00)
[2022-06-05] MEDS: PANTOPRAZOLE 40 MG/10 ML VIAL INJ IV SCH (09:03)
[2022-06-05] MEDS: FLORASTOR (S. BOULARDII) 250 MG CAP PO SCH (09:04)
[2022-06-05] MEDS: SODIUM CHLOR 0.9% PF (SALINE LOCK) 10ML VIAL/SYR IV SCH ×2 (09:04→21:57)
[2022-06-05] MEDS: CEFEPIME 0.5 GM in D5W 5% 50 ML IV SCH (09:04)
[2022-06-05] MEDS: METOPROLOL TARTRATE 25 MG TAB PO SCH ×2 (09:04→21:57)
[2022-06-05] MEDS: MUPIROCIN 2% OINT 15gm or 22gm TOP SCH ×2 (09:04→21:58)
[2022-06-05] MEDS: INSULIN LANTUS (GLARGINE) 1 /0.01ml (100units/ml) SC SCH (09:22)
[2022-06-05] MEDS: LABETALOL HCL 5 MG/ML 4ML SYRINGE IV PRN ×2 (10:54→21:59)
[2022-06-05] MEDS ORDERED: EPINEPHrine HCL 0.5 ML NEB ONE (11:35)
[2022-06-05] MEDS ORDERED: EPINEPHrine HCL 0.5 ML NEB NEB ONE (11:35)
[2022-06-05] MEDS: MIDAZOLAM DRIP 50 mg/50mL 50 ML IV SCH (15:00)
[2022-06-05] MEDS: PROPOFOL 100 ML IV SCH (15:00)
[2022-06-05] MEDS ORDERED: VANCOMYCIN 500 MG in D5W 5% 100 ML IV ONE (16:00)
[2022-06-05] MEDS: NOREPINEPHRINE 8 MG/250ML KIT 250 ML IV SCH (17:15)
[2022-06-05] MEDS ORDERED: EPOETIN ALFA-EPBX 10,000 UNIT/1ML VIAL SC ONE (21:00)
[2022-06-05] MEDS ORDERED: CEFEPIME 1GM/ 50ML 50 ML IV SCH (22:00)
[2022-06-06] VITALS (35 sets, daily range): BP systolic 112–184; BP diastolic 56–124
[2022-06-06] MEDS: InsuLIN REG 1unit/0.01ml Soln (100units/ml) SC SCH ×5 (00:01→23:40)
[2022-06-06] MEDS: ALBUTEROL SULF 2.5 MG/0.5ML(0.5%) NEB SOLN NEB SCH ×4 (00:03→18:25)
[2022-06-06 03:44] LABS: Hemoglobin 8.4 g/dL (12.2-16.2)
[2022-06-06 03:47] LABS: Hematocrit 25.1 % (36.0-46.0); Mean Corpuscular Hemoglobin 28.3 pg (28.0-32.0); Mean Corpuscular Hgb Conc. 33.4 g/dL (32.0-36.0); Mean Corpuscular Volume 84.7 fL (80.0-100.0); Red Blood Cells 2.96 10^6/uL (4.0-5.20); Red Cell Distribution Width 14.9 % (11.8-14.3); White Blood Cell 13.8 10^3/uL (4.4-10.8)
[2022-06-06 04:05] LABS: Basophils % (manual) 0 (0.0-2.0); Blast Cells 0; Eosinophils % (manual) 0 (0-7); Metamyelocytes % 0; Promyelocytes % 0; Reactive Lymphocytes 0
[2022-06-06 04:14] LABS: Calcium 7.8 mg/dL (8.5-10.1); Potassium 3.9 mmol/L (3.5-5.1)
[2022-06-06 04:17] LABS: BUN/Creatinine Ratio 8.9
[2022-06-06] MEDS: ACCU-CHEK COMFORT CURVE STRIP VI SCH ×4 (05:18→23:38)
[2022-06-06 06:52] LABS: Band Neutrophils % (manual) 10; Myelocytes % 4
[2022-06-06 06:54] LABS: Lymphocytes % (manual) 7 (10.0-50.0); Monocytes % (manual) 11 (0-12)
[2022-06-06] MEDS: PANTOPRAZOLE 40 MG/10 ML VIAL INJ IV SCH (10:22)
[2022-06-06] MEDS: SODIUM CHLOR 0.9% PF (SALINE LOCK) 10ML VIAL/SYR IV SCH ×2 (10:22→22:06)
[2022-06-06] MEDS: INSULIN LANTUS (GLARGINE) 1 /0.01ml (100units/ml) SC SCH (10:23)
[2022-06-06] MEDS: MUPIROCIN 2% OINT 15gm or 22gm TOP SCH ×2 (10:24→22:06)
[2022-06-06] MEDS: METOPROLOL TARTRATE 25 MG TAB PO SCH ×3 (13:23→22:06)
[2022-06-06] MEDS: FLORASTOR (S. BOULARDII) 250 MG CAP PO SCH (13:24)
[2022-06-06] MEDS ORDERED: FUROSEMIDE 40 MG/4 ML VIAL IV ONE (14:30)
[2022-06-06] MEDS: amLODIPine BESYLATE 5 MG TAB PO SCH (16:10)
[2022-06-06 17:17] LABS: BUN/Creatinine Ratio 8.2; Calcium 7.9 mg/dL (8.5-10.1); Potassium 3.7 mmol/L (3.5-5.1)
[2022-06-06] MEDS ORDERED: ALPRAZolam 0.5 MG TAB PO ONE (18:15)
[2022-06-07] VITALS (40 sets, daily range): BP systolic 132–175; BP diastolic 65–108
[2022-06-07 03:49] LABS: Hematocrit 28.6 % (36.0-46.0); Hemoglobin 9.2 g/dL (12.2-16.2); Mean Corpuscular Hemoglobin 27.4 pg (28.0-32.0); Mean Corpuscular Hgb Conc. 32.1 g/dL (32.0-36.0); Mean Corpuscular Volume 85.2 fL (80.0-100.0); Red Blood Cells 3.35 10^6/uL (4.0-5.20); Red Cell Distribution Width 15.3 % (11.8-14.3)
[2022-06-07 04:01] LABS: Basophils % (manual) 0 (0.0-2.0); Blast Cells 0; Eosinophils % (manual) 0 (0-7); Promyelocytes % 0; Reactive Lymphocytes 0
[2022-06-07 04:08] LABS: BUN/Creatinine Ratio 8.5; Calcium 8.1 mg/dL (8.5-10.1); Potassium 3.4 mmol/L (3.5-5.1)
[2022-06-07] MEDS: ACCU-CHEK COMFORT CURVE STRIP VI SCH ×3 (05:35→18:52)
[2022-06-07] MEDS: InsuLIN REG 1unit/0.01ml Soln (100units/ml) SC SCH ×3 (05:37→18:45)
[2022-06-07] MEDS: LABETALOL HCL 5 MG/ML 4ML SYRINGE IV PRN (06:07)
[2022-06-07 07:58] LABS: Band Neutrophils % (manual) 7; Lymphocytes % (manual) 13 (10.0-50.0); Metamyelocytes % 4; Monocytes % (manual) 3 (0-12); Myelocytes % 3
[2022-06-07] MEDS: PANTOPRAZOLE 40 MG/10 ML VIAL INJ IV SCH (10:20)
[2022-06-07] MEDS: SODIUM CHLOR 0.9% PF (SALINE LOCK) 10ML VIAL/SYR IV SCH ×2 (10:20→21:43)
[2022-06-07] MEDS: METOPROLOL TARTRATE 25 MG TAB PO SCH ×2 (10:21→21:43)
[2022-06-07] MEDS: amLODIPine BESYLATE 5 MG TAB PO SCH (10:21)
[2022-06-07] MEDS: FLORASTOR (S. BOULARDII) 250 MG CAP PO SCH (10:21)
[2022-06-07] MEDS: MUPIROCIN 2% OINT 15gm or 22gm TOP SCH ×2 (10:28→21:43)
[2022-06-07] MEDS: INSULIN LANTUS (GLARGINE) 1 /0.01ml (100units/ml) SC SCH (10:41)
[2022-06-07] MEDS: ALBUTEROL SULF 2.5 MG/0.5ML(0.5%) NEB SOLN NEB SCH ×4 (14:24→18:23)
[2022-06-07] MEDS ORDERED: POTASSIUM CHL 20MEQ/100ML 100 ML IV ONE (15:15)
[2022-06-08] VITALS (11 sets, daily range): BP systolic 131–177; BP diastolic 67–93
[2022-06-08] MEDS: ACCU-CHEK COMFORT CURVE STRIP VI SCH ×5 (00:19→23:35)
[2022-06-08] MEDS: ALBUTEROL SULF 2.5 MG/0.5ML(0.5%) NEB SOLN NEB SCH ×4 (00:21→18:52)
[2022-06-08 04:00] LABS: Hematocrit 27.1 % (36.0-46.0); Hemoglobin 8.7 g/dL (12.2-16.2); Mean Corpuscular Hemoglobin 27.1 pg (28.0-32.0); Mean Corpuscular Hgb Conc. 32.2 g/dL (32.0-36.0); Mean Corpuscular Volume 84.4 fL (80.0-100.0); Red Blood Cells 3.22 10^6/uL (4.0-5.20); Red Cell Distribution Width 15.3 % (11.8-14.3); White Blood Cell 11.7 10^3/uL (4.4-10.8)
[2022-06-08 04:18] LABS: Basophils % (manual) 0 (0.0-2.0); Blast Cells 0; Metamyelocytes % 0; Myelocytes % 0; Promyelocytes % 0; Reactive Lymphocytes 0
[2022-06-08 04:22] LABS: Anion Gap 11 (5-15); BUN/Creatinine Ratio 8.6; Blood Urea Nitrogen 31 mg/dL (7-18); Calcium 7.7 mg/dL (8.5-10.1); Carbon Dioxide 26 mmol/L (21-32); Chloride 102 mmol/L (98-107); GFR African American 17 mL/min; GFR Non-African American 14 mL/min; Glucose 168 mg/dL (74-106); Potassium 3.8 mmol/L (3.5-5.1); Sodium 139 mmol/L (136-145)
[2022-06-08] MEDS: InsuLIN REG 1unit/0.01ml Soln (100units/ml) SC SCH ×5 (06:15→23:24)
[2022-06-08] MEDS ORDERED: SODIUM CHL 0.9% 1000 ML BAG XX ONE (07:00)
[2022-06-08] MEDS: amLODIPine BESYLATE 5 MG TAB PO SCH (08:52)
[2022-06-08] MEDS: FLORASTOR (S. BOULARDII) 250 MG CAP PO SCH (08:53)
[2022-06-08] MEDS: METOPROLOL TARTRATE 25 MG TAB PO SCH ×3 (08:53→22:31)
[2022-06-08] MEDS: PANTOPRAZOLE 40 MG/10 ML VIAL INJ IV SCH (08:54)
[2022-06-08 09:13] LABS: Band Neutrophils % (manual) 5; Eosinophils % (manual) 2 (0-7); Lymphocytes % (manual) 18 (10.0-50.0); Monocytes % (manual) 4 (0-12)
[2022-06-08] MEDS: MUPIROCIN 2% OINT 15gm or 22gm TOP SCH ×2 (10:00→22:00)
[2022-06-08] MEDS: INSULIN LANTUS (GLARGINE) 1 /0.01ml (100units/ml) SC SCH (12:08)
[2022-06-08] MEDS: SODIUM CHLOR 0.9% PF (SALINE LOCK) 10ML VIAL/SYR IV SCH ×2 (15:03→22:31)
[2022-06-08] MEDS ORDERED: EPOETIN ALFA-EPBX 10,000 UNIT/1ML VIAL SC ONE (21:00)
[2022-06-09] MEDS: ALBUTEROL SULF 2.5 MG/0.5ML(0.5%) NEB SOLN NEB SCH ×4 (00:48→18:21)
[2022-06-09] MEDS: InsuLIN REG 1unit/0.01ml Soln (100units/ml) SC SCH ×4 (05:39→23:33)
[2022-06-09] MEDS: ACCU-CHEK COMFORT CURVE STRIP VI SCH ×4 (05:40→23:14)
[2022-06-09] MEDS: LABETALOL HCL 5 MG/ML 4ML SYRINGE IV PRN (06:50)
[2022-06-09 06:51] VITALS: BP 175/79
[2022-06-09] MEDS: SODIUM CHLOR 0.9% PF (SALINE LOCK) 10ML VIAL/SYR IV SCH ×2 (10:51→23:11)
[2022-06-09] MEDS: PANTOPRAZOLE 40 MG/10 ML VIAL INJ IV SCH (10:52)
[2022-06-09] MEDS: FLORASTOR (S. BOULARDII) 250 MG CAP PO SCH (10:52)
[2022-06-09] MEDS: FUROSEMIDE 100 MG/10ML VIAL IV SCH (10:55)
[2022-06-09] MEDS: amLODIPine BESYLATE 5 MG TAB PO SCH (10:56)
[2022-06-09] MEDS: METOPROLOL TARTRATE 25 MG TAB PO SCH (11:08)
[2022-06-09] MEDS: INSULIN LANTUS (GLARGINE) 1 /0.01ml (100units/ml) SC SCH (11:22)
[2022-06-09] MEDS: MUPIROCIN 2% OINT 15gm or 22gm TOP SCH ×2 (12:00→23:12)
[2022-06-09 12:10] LABS: Albumin 1.8 g/dL (3.4-5.0); BUN/Creatinine Ratio 10.4; Calcium 7.6 mg/dL (8.5-10.1); Phosphorus 4.1 mg/dL (2.5-4.90); Potassium 3.8 mmol/L (3.5-5.1)
[2022-06-09 13:00] VITALS: BP 164/89
[2022-06-09] MEDS ORDERED: VANCOMYCIN 500 MG in D5W 5% 100 ML IV ONE (16:00)
[2022-06-09 17:00] VITALS: BP 152/93
[2022-06-09 17:10] VITALS: BP 147/85
[2022-06-09 22:17] VITALS: BP 137/79
[2022-06-10] MEDS: ALBUTEROL SULF 2.5 MG/0.5ML(0.5%) NEB SOLN NEB SCH ×4 (00:12→18:46)
[2022-06-10 05:13] VITALS: BP 108/67
[2022-06-10 06:18] LABS: Calcium 7.6 mg/dL (8.5-10.1); Potassium 3.7 mmol/L (3.5-5.1)
[2022-06-10] MEDS: ACCU-CHEK COMFORT CURVE STRIP VI SCH ×4 (06:18→23:54)
[2022-06-10] MEDS: InsuLIN REG 1unit/0.01ml Soln (100units/ml) SC SCH ×4 (06:19→23:55)
[2022-06-10 06:20] LABS: BUN/Creatinine Ratio 11.6
[2022-06-10 06:22] LABS: Bilirubin, Total 0.4 mg/dL (0.2-1.0); Phosphorus 4.3 mg/dL (2.5-4.90); Total Protein 6.5 g/dL (6.4-8.2)
[2022-06-10] MEDS ORDERED: CLINDAMYCIN 600MG IV 50 ML IV ONE (10:15)
[2022-06-10] MEDS: MUPIROCIN 2% OINT 15gm or 22gm TOP SCH ×2 (11:19→22:32)
[2022-06-10] MEDS: SODIUM CHLOR 0.9% PF (SALINE LOCK) 10ML VIAL/SYR IV SCH ×2 (11:19→22:31)
[2022-06-10] MEDS: METOPROLOL TARTRATE 25 MG TAB PO SCH ×2 (11:21→22:31)
[2022-06-10] MEDS: amLODIPine BESYLATE 5 MG TAB PO SCH (11:21)
[2022-06-10] MEDS: PANTOPRAZOLE 40 MG/10 ML VIAL INJ IV SCH (11:22)
[2022-06-10] MEDS: DOXYCYCLINE 100 MG TAB/CAP PO SCH ×2 (11:22→22:32)
[2022-06-10] MEDS: FUROSEMIDE 100 MG/10ML VIAL IV SCH (11:22)
[2022-06-10] MEDS: FLORASTOR (S. BOULARDII) 250 MG CAP PO SCH (11:22)
[2022-06-10] MEDS: INSULIN LANTUS (GLARGINE) 1 /0.01ml (100units/ml) SC SCH (11:41)
[2022-06-10 12:30] VITALS: BP 160/84
[2022-06-10 17:00] VITALS: BP 146/84
[2022-06-10] MEDS: CLINDAMYCIN 600MG IV 50 ML IV SCH (18:27)
[2022-06-10 22:34] VITALS: BP 155/68
[2022-06-11] MEDS: ALBUTEROL SULF 2.5 MG/0.5ML(0.5%) NEB SOLN NEB SCH ×4 (00:44→18:55)
[2022-06-11] MEDS: CLINDAMYCIN 600MG IV 50 ML IV SCH ×3 (01:54→18:03)
[2022-06-11 05:10] VITALS: BP 135/81
[2022-06-11] MEDS: InsuLIN REG 1unit/0.01ml Soln (100units/ml) SC SCH ×3 (05:49→18:03)
[2022-06-11] MEDS: ACCU-CHEK COMFORT CURVE STRIP VI SCH ×3 (05:49→18:03)
[2022-06-11 09:00] VITALS: BP 146/83
[2022-06-11] MEDS: METOPROLOL TARTRATE 25 MG TAB PO SCH ×2 (09:29→21:02)
[2022-06-11] MEDS: DOXYCYCLINE 100 MG TAB/CAP PO SCH ×2 (09:29→21:02)
[2022-06-11] MEDS: FLORASTOR (S. BOULARDII) 250 MG CAP PO SCH (09:30)
[2022-06-11] MEDS: amLODIPine BESYLATE 5 MG TAB PO SCH (09:30)
[2022-06-11] MEDS: PANTOPRAZOLE 40 MG/10 ML VIAL INJ IV SCH (09:30)
[2022-06-11] MEDS: SODIUM CHLOR 0.9% PF (SALINE LOCK) 10ML VIAL/SYR IV SCH ×2 (09:31→21:02)
[2022-06-11] MEDS: FUROSEMIDE 100 MG/10ML VIAL IV SCH (09:31)
[2022-06-11] MEDS: MUPIROCIN 2% OINT 15gm or 22gm TOP SCH (09:43)
[2022-06-11] MEDS: INSULIN LANTUS (GLARGINE) 1 /0.01ml (100units/ml) SC SCH (11:36)
[2022-06-11 12:45] VITALS: BP 146/81
[2022-06-11 13:00] VITALS: BP 135/73
[2022-06-11 17:00] VITALS: BP 132/69
[2022-06-11 23:23] VITALS: BP 121/72
[2022-06-12] MEDS: InsuLIN REG 1unit/0.01ml Soln (100units/ml) SC SCH ×5 (00:33→23:05)
[2022-06-12] MEDS: ALBUTEROL SULF 2.5 MG/0.5ML(0.5%) NEB SOLN NEB SCH ×4 (00:50→19:18)
[2022-06-12] MEDS: CLINDAMYCIN 600MG IV 50 ML IV SCH ×2 (01:39→10:25)
[2022-06-12 06:02] VITALS: BP 138/80
[2022-06-12 06:06] LABS: Hematocrit 30.5 % (36.0-46.0); Mean Corpuscular Hemoglobin 27.8 pg (28.0-32.0); Mean Corpuscular Volume 84.2 fL (80.0-100.0); Red Blood Cells 3.62 10^6/uL (4.0-5.20); Red Cell Distribution Width 15.9 % (11.8-14.3); White Blood Cell 9.4 10^3/uL (4.4-10.8)
[2022-06-12 06:16] LABS: Albumin 2.1 g/dL (3.4-5.0); BUN/Creatinine Ratio 12.8; Bilirubin, Total 0.4 mg/dL (0.2-1.0); Calcium 7.5 mg/dL (8.5-10.1); Potassium 3.4 mmol/L (3.5-5.1)
[2022-06-12] MEDS: ACCU-CHEK COMFORT CURVE STRIP VI SCH ×5 (06:21→23:27)
[2022-06-12 07:11] LABS: Band Neutrophils % (manual) 0; Basophils % (manual) 0 (0.0-2.0); Blast Cells 0; Metamyelocytes % 0; Myelocytes % 0; Promyelocytes % 0; Reactive Lymphocytes 0
[2022-06-12 09:00] VITALS: BP 123/72
[2022-06-12] MEDS: FLORASTOR (S. BOULARDII) 250 MG CAP PO SCH (10:25)
[2022-06-12] MEDS: SODIUM CHLOR 0.9% PF (SALINE LOCK) 10ML VIAL/SYR IV SCH ×2 (10:25→23:01)
[2022-06-12] MEDS: FUROSEMIDE 100 MG/10ML VIAL IV SCH (10:25)
[2022-06-12] MEDS: amLODIPine BESYLATE 5 MG TAB PO SCH (10:26)
[2022-06-12] MEDS: METOPROLOL TARTRATE 25 MG TAB PO SCH ×2 (10:26→22:00)
[2022-06-12] MEDS: DOXYCYCLINE 100 MG TAB/CAP PO SCH ×2 (10:26→23:02)
[2022-06-12] MEDS: INSULIN LANTUS (GLARGINE) 1 /0.01ml (100units/ml) SC SCH (10:35)
[2022-06-12 12:47] LABS: Lymphocytes % (manual) 25 (10.0-50.0)
[2022-06-12 12:48] LABS: Eosinophils % (manual) 5 (0-7); Monocytes % (manual) 17 (0-12)
[2022-06-12 13:00] VITALS: BP 132/59
[2022-06-12] MEDS: CLINDAMYCIN HCL 150 MG CAP PO SCH ×2 (14:09→23:01)
[2022-06-12 17:00] VITALS: BP 128/69
[2022-06-13] MEDS: ALBUTEROL SULF 2.5 MG/0.5ML(0.5%) NEB SOLN NEB SCH ×3 (00:27→18:06)
[2022-06-13] MEDS: CLINDAMYCIN HCL 150 MG CAP PO SCH ×3 (05:44→22:09)
[2022-06-13] MEDS: InsuLIN REG 1unit/0.01ml Soln (100units/ml) SC SCH ×3 (05:45→17:44)
[2022-06-13] MEDS: ACCU-CHEK COMFORT CURVE STRIP VI SCH ×3 (05:48→17:45)
[2022-06-13 06:02] VITALS: BP 116/67
[2022-06-13 07:28] LABS: Albumin 2.3 g/dL (3.4-5.0); Calcium 7.5 mg/dL (8.5-10.1); Potassium 3.5 mmol/L (3.5-5.1)
[2022-06-13 07:30] LABS: BUN/Creatinine Ratio 16.6
[2022-06-13 07:33] LABS: Bilirubin, Total 0.3 mg/dL (0.2-1.0); Total Protein 6.6 g/dL (6.4-8.2)
[2022-06-13 09:00] VITALS: BP 126/82
[2022-06-13] MEDS: SODIUM CHLOR 0.9% PF (SALINE LOCK) 10ML VIAL/SYR IV SCH ×2 (10:49→22:09)
[2022-06-13] MEDS: DOXYCYCLINE 100 MG TAB/CAP PO SCH ×2 (10:49→22:10)
[2022-06-13] MEDS: FLORASTOR (S. BOULARDII) 250 MG CAP PO SCH (10:49)
[2022-06-13] MEDS: amLODIPine BESYLATE 5 MG TAB PO SCH (10:50)
[2022-06-13] MEDS: METOPROLOL TARTRATE 25 MG TAB PO SCH ×2 (10:51→22:10)
[2022-06-13] MEDS: INSULIN LANTUS (GLARGINE) 1 /0.01ml (100units/ml) SC SCH ×2 (11:03→22:12)
[2022-06-13 13:00] VITALS: BP 125/77
[2022-06-13 17:00] VITALS: BP 117/81
[2022-06-14] MEDS: ALBUTEROL SULF 2.5 MG/0.5ML(0.5%) NEB SOLN NEB SCH ×5 (00:06→23:59)
[2022-06-14] MEDS: InsuLIN REG 1unit/0.01ml Soln (100units/ml) SC SCH ×4 (00:47→17:58)
[2022-06-14 04:47] VITALS: BP 128/80
[2022-06-14] MEDS: ACCU-CHEK COMFORT CURVE STRIP VI SCH ×4 (06:00→17:58)
[2022-06-14 06:28] LABS: Albumin 2.3 g/dL (3.4-5.0); BUN/Creatinine Ratio 19.2; Potassium 3.3 mmol/L (3.5-5.1)
[2022-06-14 06:30] LABS: Bilirubin, Total 0.4 mg/dL (0.2-1.0); Total Protein 7.2 g/dL (6.4-8.2)
[2022-06-14] MEDS: CLINDAMYCIN HCL 150 MG CAP PO SCH (06:39)
[2022-06-14 08:53] VITALS: BP 121/72
[2022-06-14] MEDS: SODIUM CHLOR 0.9% PF (SALINE LOCK) 10ML VIAL/SYR IV SCH ×2 (09:11→22:00)
[2022-06-14] MEDS: FLORASTOR (S. BOULARDII) 250 MG CAP PO SCH (09:12)
[2022-06-14] MEDS: METOPROLOL TARTRATE 25 MG TAB PO SCH (09:12)
[2022-06-14] MEDS: amLODIPine BESYLATE 5 MG TAB PO SCH (09:12)
[2022-06-14] MEDS: DOXYCYCLINE 100 MG TAB/CAP PO SCH ×2 (09:13→22:30)
[2022-06-14] MEDS: INSULIN LANTUS (GLARGINE) 1 /0.01ml (100units/ml) SC SCH ×2 (09:14→22:30)
[2022-06-14] MEDS ORDERED: POTASSIUM CHL 20 Meq TABLET PO ONE (11:00)
[2022-06-14] MEDS: SODIUM CHLORIDE 0.9% 1,000 ML IV SCH (12:14)
[2022-06-14 13:11] VITALS: BP 127/70
[2022-06-14] MEDS: CLINDAMYCIN 600MG IV 50 ML IV SCH ×2 (13:31→22:30)
[2022-06-14 15:17] VITALS: BP 127/70
[2022-06-14 17:37] VITALS: BP 118/70
[2022-06-14 19:15] LABS: INR 1.04 (0.9-1.15); Partial Thromboplastin Time 27.2 sec (24.6-33.4)
[2022-06-14 22:00] VITALS: BP 137/71
[2022-06-15] MEDS: ACCU-CHEK COMFORT CURVE STRIP VI SCH ×4 (00:43→17:39)
[2022-06-15] MEDS: InsuLIN REG 1unit/0.01ml Soln (100units/ml) SC SCH ×4 (00:51→17:39)
[2022-06-15] MEDS: SODIUM CHLORIDE 0.9% 1,000 ML IV SCH (03:40)
[2022-06-15 05:00] VITALS: BP 136/76
[2022-06-15] MEDS: CLINDAMYCIN 600MG IV 50 ML IV SCH ×3 (06:25→21:37)
[2022-06-15 06:51] LABS: Albumin 2.3 g/dL (3.4-5.0); BUN/Creatinine Ratio 22.7; Calcium 7.8 mg/dL (8.5-10.1)
[2022-06-15 06:53] LABS: Bilirubin, Total 0.3 mg/dL (0.2-1.0); Total Protein 6.8 g/dL (6.4-8.2)
[2022-06-15] MEDS: ALBUTEROL SULF 2.5 MG/0.5ML(0.5%) NEB SOLN NEB SCH ×3 (06:55→17:55)
[2022-06-15 09:00] VITALS: BP 132/73
[2022-06-15] MEDS: SODIUM CHLOR 0.9% PF (SALINE LOCK) 10ML VIAL/SYR IV SCH ×2 (09:55→21:48)
[2022-06-15] MEDS: FLORASTOR (S. BOULARDII) 250 MG CAP PO SCH (09:56)
[2022-06-15] MEDS: DOXYCYCLINE 100 MG TAB/CAP PO SCH ×2 (09:56→21:37)
[2022-06-15] MEDS: amLODIPine BESYLATE 5 MG TAB PO SCH (09:56)
[2022-06-15] MEDS: INSULIN LANTUS (GLARGINE) 1 /0.01ml (100units/ml) SC SCH ×2 (10:08→21:49)
[2022-06-15] MEDS ORDERED: ceFAZolin 1GM/50ML 100 ML IV ONE (10:41)
[2022-06-15] MEDS ORDERED: fentaNYL CITRATE 100 MCG/2 ML VL ONE (12:06)
[2022-06-15] MEDS ORDERED: MIDAZOLAM HCL 2MG/2ML 2ml VIAL (1mg/ml) ONE (12:06)
[2022-06-15] MEDS ORDERED: DexAMETHasone SOD PHOS 10MG/1ML VIAL INJ ONE (12:14)
[2022-06-15] MEDS ORDERED: PROPOFOL 10 MG/ML 20 ML IV ONE (12:14)
[2022-06-15] MEDS ORDERED: ceFAZolin 1GM VL ONE (12:15)
[2022-06-15] MEDS ORDERED: MIDAZOLAM HCL 2MG/2ML 2ml VIAL (1mg/ml) IV PRN (12:30)
[2022-06-15] MEDS ORDERED: HYDROmorphone HCL 2 MG/ML VL/or syr IV PRN (12:30)
[2022-06-15] MEDS ORDERED: ePHEDrine SULFATE 50 MG/ML AMP IV PRN (12:30)
[2022-06-15] MEDS ORDERED: MORPHINE SULFATE 4 MG/ML SYR/VIAL IV PRN (12:30)
[2022-06-15] MEDS ORDERED: ONDANSETRON HCL 4 MG/2 ML VIAL IV PRN (12:30)
[2022-06-15] MEDS ORDERED: LABETALOL HCL 5 MG/ML 4ML SYRINGE IV PRN (12:30)
[2022-06-15] MEDS ORDERED: ACCU-CHEK COMFORT CURVE STRIP VI ONE (12:30)
[2022-06-15] MEDS: SOD CHL 0.9%/ KCL 20MEQ 1,000 ML IV SCH (14:43)
[2022-06-15 17:00] VITALS: BP 152/75
[2022-06-15 22:00] VITALS: BP 127/74
[2022-06-16] MEDS: ACCU-CHEK COMFORT CURVE STRIP VI SCH ×5 (01:14→22:42)
[2022-06-16] MEDS: InsuLIN REG 1unit/0.01ml Soln (100units/ml) SC SCH ×5 (01:22→22:40)
[2022-06-16 05:00] VITALS: BP 127/69
[2022-06-16 05:11] LABS: Basophils # (auto) 0.2 10 ^3/uL (0-0.2); Eosinophils # (auto) 0.2 10 ^3/uL (0-0.8); Eosinophils % (auto) 2.3 % (0.0-7.0); Hematocrit 28.2 % (36.0-46.0); Hemoglobin 9.1 g/dL (12.2-16.2); Lymphocytes # (auto) 1.6 10 ^3/uL (0.4-5.4); Mean Corpuscular Hemoglobin 27.6 pg (28.0-32.0); Mean Corpuscular Hgb Conc. 32.4 g/dL (32.0-36.0); Mean Corpuscular Volume 85.3 fL (80.0-100.0); Monocytes % (auto) 12.4 % (0.0-12.0); Neutrophils % (auto) 63.3 % (37.0-80.0); Red Blood Cells 3.31 10^6/uL (4.0-5.20); Red Cell Distribution Width 15.7 % (11.8-14.3); White Blood Cell 7.9 10^3/uL (4.4-10.8)
[2022-06-16 05:15] LABS: BUN/Creatinine Ratio 19.6; Calcium 7.7 mg/dL (8.5-10.1); Potassium 3.5 mmol/L (3.5-5.1)
[2022-06-16] MEDS: CLINDAMYCIN 600MG IV 50 ML IV SCH ×3 (05:22→22:37)
[2022-06-16] MEDS: SOD CHL 0.9%/ KCL 20MEQ 1,000 ML IV SCH ×2 (05:30→19:15)
[2022-06-16] MEDS: ALBUTEROL SULF 2.5 MG/0.5ML(0.5%) NEB SOLN NEB SCH ×4 (06:30→23:55)
[2022-06-16 09:00] VITALS: BP 143/76
[2022-06-16] MEDS: SODIUM CHLOR 0.9% PF (SALINE LOCK) 10ML VIAL/SYR IV SCH ×2 (12:11→22:37)
[2022-06-16] MEDS: FLORASTOR (S. BOULARDII) 250 MG CAP PO SCH (12:34)
[2022-06-16] MEDS: DOXYCYCLINE 100 MG TAB/CAP PO SCH ×2 (12:34→22:37)
[2022-06-16] MEDS: amLODIPine BESYLATE 5 MG TAB PO SCH (12:37)
[2022-06-16] MEDS: INSULIN LANTUS (GLARGINE) 1 /0.01ml (100units/ml) SC SCH ×2 (12:44→22:39)
[2022-06-16 13:00] VITALS: BP 147/85
[2022-06-16 17:00] VITALS: BP 137/83
[2022-06-16 22:00] VITALS: BP 102/58
[2022-06-16] MEDS: TEMAZEPAM 15 MG CAP PO PRN (22:43)
[2022-06-17] MEDS: SOD CHL 0.9%/ KCL 20MEQ 1,000 ML IV SCH ×2 (03:45→17:46)
[2022-06-17 04:32] VITALS: BP 134/78
[2022-06-17] MEDS: InsuLIN REG 1unit/0.01ml Soln (100units/ml) SC SCH ×3 (06:00→18:09)
[2022-06-17] MEDS: ACCU-CHEK COMFORT CURVE STRIP VI SCH ×3 (06:26→18:07)
[2022-06-17] MEDS: CLINDAMYCIN 600MG IV 50 ML IV SCH ×3 (06:26→22:18)
[2022-06-17] MEDS: ALBUTEROL SULF 2.5 MG/0.5ML(0.5%) NEB SOLN NEB SCH ×3 (06:42→19:04)
[2022-06-17 08:07] VITALS: BP 134/78
[2022-06-17 09:00] VITALS: BP 149/89
[2022-06-17] MEDS ORDERED: HYDROcodone-ACET 5/325MG TAB PO PRN (10:00)
[2022-06-17] MEDS: FLORASTOR (S. BOULARDII) 250 MG CAP PO SCH (11:30)
[2022-06-17] MEDS: DOXYCYCLINE 100 MG TAB/CAP PO SCH ×2 (11:30→22:18)
[2022-06-17] MEDS: INSULIN LANTUS (GLARGINE) 1 /0.01ml (100units/ml) SC SCH ×2 (11:30→22:20)
[2022-06-17] MEDS: amLODIPine BESYLATE 5 MG TAB PO SCH (11:31)
[2022-06-17] MEDS: SODIUM CHLOR 0.9% PF (SALINE LOCK) 10ML VIAL/SYR IV SCH ×2 (11:32→22:00)
[2022-06-17 13:01] VITALS: BP 143/88
[2022-06-17 17:00] VITALS: BP 117/71
[2022-06-17 22:00] VITALS: BP 135/82
[2022-06-18] MEDS: ACCU-CHEK COMFORT CURVE STRIP VI SCH ×5 (00:13→23:49)
[2022-06-18] MEDS: InsuLIN REG 1unit/0.01ml Soln (100units/ml) SC SCH ×5 (00:15→23:42)
[2022-06-18] MEDS ORDERED: ALBUTEROL SULF 2.5 MG/0.5ML(0.5%) NEB SOLN NEB PRN (01:00)
[2022-06-18 05:00] VITALS: BP 131/80
[2022-06-18] MEDS: CLINDAMYCIN 600MG IV 50 ML IV SCH (06:37)
[2022-06-18] MEDS: SOD CHL 0.9%/ KCL 20MEQ 1,000 ML IV SCH (06:37)
[2022-06-18 09:00] VITALS: BP 133/82
[2022-06-18] MEDS: SODIUM CHLOR 0.9% PF (SALINE LOCK) 10ML VIAL/SYR IV SCH ×2 (10:16→23:12)
[2022-06-18] MEDS: FLORASTOR (S. BOULARDII) 250 MG CAP PO SCH (10:16)
[2022-06-18] MEDS: amLODIPine BESYLATE 5 MG TAB PO SCH (10:16)
[2022-06-18] MEDS: DOXYCYCLINE 100 MG TAB/CAP PO SCH (10:17)
[2022-06-18] MEDS: INSULIN LANTUS (GLARGINE) 1 /0.01ml (100units/ml) SC SCH ×2 (10:23→23:42)
[2022-06-18] MEDS ORDERED: VANCOMYCIN PER PHARMACY 0 MG IV SCH (11:00)
[2022-06-18] MEDS ORDERED: cefTRIAXone 1GM/50ML D5W 50 ML IV ONE (11:00)
[2022-06-18] MEDS ORDERED: VANCOMYCIN 1GM/250ML 250 ML IV ONE (12:00)
[2022-06-18] MEDS ORDERED: ENOXAPARIN SOD 30 MG/0.3 ML SYRINGE SC ONE (12:30)
[2022-06-18 13:00] VITALS: BP 133/72
[2022-06-18 17:00] VITALS: BP 154/87
[2022-06-18] MEDS: TEMAZEPAM 15 MG CAP PO PRN (22:15)
[2022-06-18 23:02] VITALS: BP 135/82
[2022-06-19] MEDS: ACCU-CHEK COMFORT CURVE STRIP VI SCH ×4 (05:19→22:26)
[2022-06-19] MEDS: InsuLIN REG 1unit/0.01ml Soln (100units/ml) SC SCH ×4 (05:19→22:50)
[2022-06-19 05:37] VITALS: BP 143/82
[2022-06-19 06:52] LABS: Basophils # (auto) 0.2 10 ^3/uL (0-0.2); Basophils % (auto) 2.2 % (0.0-2.0); Eosinophils # (auto) 0.2 10 ^3/uL (0-0.8); Eosinophils % (auto) 2.3 % (0.0-7.0); Hemoglobin 8.9 g/dL (12.2-16.2); Lymphocytes # (auto) 1.4 10 ^3/uL (0.4-5.4); Lymphocytes % (auto) 17.2 % (10.0-50.0); Mean Corpuscular Hemoglobin 27.7 pg (28.0-32.0); Monocytes # (auto) 0.9 10 ^3/uL (0-1.3); Monocytes % (auto) 11.2 % (0.0-12.0); Neutrophils # (auto) 5.3 10 ^3/uL (1.6-8.6); Neutrophils % (auto) 67.1 % (37.0-80.0); Nucleated Red Blood Cells % 0.1 %; Red Blood Cells 3.21 10^6/uL (4.0-5.20); Red Cell Distribution Width 15.1 % (11.8-14.3); White Blood Cell 7.9 10^3/uL (4.4-10.8)
[2022-06-19 07:00] LABS: BUN/Creatinine Ratio 21.1; Calcium 7.6 mg/dL (8.5-10.1); Potassium 3.7 mmol/L (3.5-5.1)
[2022-06-19 09:00] VITALS: BP 156/90
[2022-06-19] MEDS: SODIUM CHLOR 0.9% PF (SALINE LOCK) 10ML VIAL/SYR IV SCH ×2 (10:00→22:25)
[2022-06-19] MEDS ORDERED: ENOXAPARIN SOD 30 MG/0.3 ML SYRINGE SC SCH (10:00)
[2022-06-19] MEDS: amLODIPine BESYLATE 5 MG TAB PO SCH (10:20)
[2022-06-19] MEDS: cefTRIAXone 1GM/50ML D5W 50 ML IV SCH (10:20)
[2022-06-19] MEDS: INSULIN LANTUS (GLARGINE) 1 /0.01ml (100units/ml) SC SCH ×2 (12:13→22:50)
[2022-06-19 13:00] VITALS: BP 142/89
[2022-06-19] MEDS ORDERED: VANCOMYCIN 1GM/250ML 250 ML IV SCH (15:00)
[2022-06-19 17:00] VITALS: BP 127/92
[2022-06-19 21:51] VITALS: BP 147/102
[2022-06-19] MEDS: LINEZOLID 600MG/300ML 300 ML IV SCH (22:26)
[2022-06-19] MEDS: TEMAZEPAM 15 MG CAP PO PRN (22:53)
[2022-06-20 05:00] VITALS: BP 118/70
[2022-06-20] MEDS: ACCU-CHEK COMFORT CURVE STRIP VI SCH ×3 (05:51→18:05)
[2022-06-20] MEDS: InsuLIN REG 1unit/0.01ml Soln (100units/ml) SC SCH ×3 (05:59→18:55)
[2022-06-20 09:00] VITALS: BP 135/55
[2022-06-20] MEDS: SODIUM CHLOR 0.9% PF (SALINE LOCK) 10ML VIAL/SYR IV SCH ×2 (10:00→21:50)
[2022-06-20] MEDS: cefTRIAXone 1GM/50ML D5W 50 ML IV SCH (10:41)
[2022-06-20] MEDS: amLODIPine BESYLATE 5 MG TAB PO SCH (10:42)
[2022-06-20] MEDS: INSULIN LANTUS (GLARGINE) 1 /0.01ml (100units/ml) SC SCH ×2 (10:53→21:58)
[2022-06-20] MEDS: LINEZOLID 600MG/300ML 300 ML IV SCH ×2 (11:55→21:50)
[2022-06-20 13:00] VITALS: BP 107/77
[2022-06-20] MEDS ORDERED: FLUCONAZOLE 100 MG TAB PO ONE (16:45)
[2022-06-20 22:00] VITALS: BP_SYST 118; BP_SYST 166; BP_DIAS 103; BP_DIAS 60
[2022-06-20] MEDS: TEMAZEPAM 15 MG CAP PO PRN (23:44)
[2022-06-21] MEDS: InsuLIN REG 1unit/0.01ml Soln (100units/ml) SC SCH ×5 (00:24→23:45)
[2022-06-21] MEDS: ACCU-CHEK COMFORT CURVE STRIP VI SCH ×5 (00:25→23:34)
[2022-06-21 05:00] VITALS: BP 127/80
[2022-06-21 08:40] VITALS: BP 140/92
[2022-06-21] MEDS: cefTRIAXone 1GM/50ML D5W 50 ML IV SCH (10:07)
[2022-06-21] MEDS: SODIUM CHLOR 0.9% PF (SALINE LOCK) 10ML VIAL/SYR IV SCH ×2 (10:07→21:57)
[2022-06-21] MEDS: FLUCONAZOLE 100 MG TAB PO SCH (10:08)
[2022-06-21] MEDS: amLODIPine BESYLATE 5 MG TAB PO SCH (10:09)
[2022-06-21] MEDS: INSULIN LANTUS (GLARGINE) 1 /0.01ml (100units/ml) SC SCH ×2 (10:23→22:25)
[2022-06-21] MEDS: LINEZOLID 600MG/300ML 300 ML IV SCH ×2 (11:05→21:57)
[2022-06-21] MEDS ORDERED: CIPROFLOXACIN 400MG/200ML 200 ML IV ONE (11:45)
[2022-06-21 12:10] VITALS: BP 163/91
[2022-06-21 16:40] VITALS: BP 149/77
[2022-06-21] MEDS: ACETAMINOPHEN 500 MG TAB PO PRN (17:49)
[2022-06-21] MEDS ORDERED: CIPROFLOXACIN 400MG/200ML 200 ML IV SCH (21:00)
[2022-06-21] MEDS: TEMAZEPAM 15 MG CAP PO PRN (21:57)
[2022-06-21] MEDS: PIPERACILLIN-TAZOB 3.375GM 100 ML IV SCH (21:57)
[2022-06-21 22:00] VITALS: BP 134/95
[2022-06-22 05:00] VITALS: BP 127/81
[2022-06-22] MEDS: ACETAMINOPHEN 500 MG TAB PO PRN (05:29)
[2022-06-22] MEDS: ACCU-CHEK COMFORT CURVE STRIP VI SCH ×4 (05:30→22:49)
[2022-06-22] MEDS: InsuLIN REG 1unit/0.01ml Soln (100units/ml) SC SCH ×4 (05:30→22:55)
[2022-06-22] MEDS: PIPERACILLIN-TAZOB 3.375GM 100 ML IV SCH ×3 (05:31→21:19)
[2022-06-22 08:40] VITALS: BP 118/73
[2022-06-22] MEDS: LINEZOLID 600MG/300ML 300 ML IV SCH ×2 (10:01→21:19)
[2022-06-22] MEDS: FLUCONAZOLE 100 MG TAB PO SCH (10:01)
[2022-06-22] MEDS: amLODIPine BESYLATE 5 MG TAB PO SCH (10:02)
[2022-06-22] MEDS: INSULIN LANTUS (GLARGINE) 1 /0.01ml (100units/ml) SC SCH ×2 (10:04→22:52)
[2022-06-22] MEDS ORDERED: LABETALOL HCL 5 MG/ML 4ML SYRINGE IV PRN (11:45)
[2022-06-22 12:40] VITALS: BP 122/78
[2022-06-22 16:20] VITALS: BP 134/89
[2022-06-22 22:00] VITALS: BP 120/64
[2022-06-23 05:00] VITALS: BP 126/72
[2022-06-23] MEDS: PIPERACILLIN-TAZOB 3.375GM 100 ML IV SCH ×3 (05:28→22:07)
[2022-06-23] MEDS: ACCU-CHEK COMFORT CURVE STRIP VI SCH ×4 (05:38→23:36)
[2022-06-23] MEDS: InsuLIN REG 1unit/0.01ml Soln (100units/ml) SC SCH ×4 (05:39→23:41)
[2022-06-23 06:15] LABS: Basophils # (auto) 0.1 10 ^3/uL (0-0.2); Basophils % (auto) 1.8 % (0.0-2.0); Eosinophils # (auto) 0.3 10 ^3/uL (0-0.8); Eosinophils % (auto) 3.8 % (0.0-7.0); Hematocrit 28.2 % (36.0-46.0); Hemoglobin 9.2 g/dL (12.2-16.2); Lymphocytes # (auto) 2.3 10 ^3/uL (0.4-5.4); Lymphocytes % (auto) 28.1 % (10.0-50.0); Mean Corpuscular Hgb Conc. 32.6 g/dL (32.0-36.0); Mean Corpuscular Volume 82.9 fL (80.0-100.0); Monocytes % (auto) 11.9 % (0.0-12.0); Neutrophils # (auto) 4.5 10 ^3/uL (1.6-8.6); Neutrophils % (auto) 54.4 % (37.0-80.0); Red Cell Distribution Width 14.3 % (11.8-14.3); White Blood Cell 8.3 10^3/uL (4.4-10.8)
[2022-06-23 06:24] LABS: Albumin 2.2 g/dL (3.4-5.0); Calcium 8.3 mg/dL (8.5-10.1); Potassium 3.3 mmol/L (3.5-5.1)
[2022-06-23 06:29] LABS: BUN/Creatinine Ratio 18.5; Bilirubin, Total 0.2 mg/dL (0.2-1.0)
[2022-06-23 08:35] VITALS: BP 140/75
[2022-06-23] MEDS: LINEZOLID 600MG/300ML 300 ML IV SCH ×2 (10:43→22:07)
[2022-06-23] MEDS: FLUCONAZOLE 100 MG TAB PO SCH (10:43)
[2022-06-23] MEDS: INSULIN LANTUS (GLARGINE) 1 /0.01ml (100units/ml) SC SCH ×2 (11:01→23:43)
[2022-06-23 12:30] VITALS: BP 123/79
[2022-06-23] MEDS ORDERED: POTASSIUM CHL 20 Meq TABLET PO ONE (14:15)
[2022-06-23 16:25] VITALS: BP 119/70
[2022-06-23 22:00] VITALS: BP 124/79
[2022-06-23] MEDS: TEMAZEPAM 15 MG CAP PO PRN (23:43)
[2022-06-24 05:00] VITALS: BP 105/58
[2022-06-24] MEDS: ACCU-CHEK COMFORT CURVE STRIP VI SCH ×4 (05:53→23:05)
[2022-06-24] MEDS: PIPERACILLIN-TAZOB 3.375GM 100 ML IV SCH ×3 (05:53→22:01)
[2022-06-24] MEDS: InsuLIN REG 1unit/0.01ml Soln (100units/ml) SC SCH ×4 (05:53→23:06)
[2022-06-24 08:00] VITALS: BP 142/87
[2022-06-24] MEDS: LINEZOLID 600MG/300ML 300 ML IV SCH ×2 (09:46→22:01)
[2022-06-24] MEDS: FLUCONAZOLE 100 MG TAB PO SCH (09:46)
[2022-06-24] MEDS: INSULIN LANTUS (GLARGINE) 1 /0.01ml (100units/ml) SC SCH ×2 (10:13→23:06)
[2022-06-24 12:00] VITALS: BP 135/81
[2022-06-24 16:00] VITALS: BP 149/89
[2022-06-24 21:51] VITALS: BP 135/77
[2022-06-24] MEDS: TEMAZEPAM 15 MG CAP PO PRN (23:49)
[2022-06-25 05:00] VITALS: BP 116/63
[2022-06-25] MEDS: ACCU-CHEK COMFORT CURVE STRIP VI SCH ×4 (05:49→23:38)
[2022-06-25] MEDS: PIPERACILLIN-TAZOB 3.375GM 100 ML IV SCH ×3 (05:49→21:38)
[2022-06-25] MEDS: InsuLIN REG 1unit/0.01ml Soln (100units/ml) SC SCH ×4 (05:49→23:40)
[2022-06-25 08:00] VITALS: BP 126/76
[2022-06-25] MEDS: FLUCONAZOLE 100 MG TAB PO SCH (10:20)
[2022-06-25] MEDS: LINEZOLID 600MG/300ML 300 ML IV SCH ×2 (10:20→21:38)
[2022-06-25] MEDS: INSULIN LANTUS (GLARGINE) 1 /0.01ml (100units/ml) SC SCH ×2 (10:25→22:29)
[2022-06-25 12:00] VITALS: BP 121/63
[2022-06-25 16:00] VITALS: BP 129/87
[2022-06-25] MEDS: TEMAZEPAM 15 MG CAP PO PRN (21:38)
[2022-06-25 22:00] VITALS: BP 124/71
[2022-06-26 05:00] VITALS: BP 126/74
[2022-06-26] MEDS: PIPERACILLIN-TAZOB 3.375GM 100 ML IV SCH ×3 (05:07→21:34)
[2022-06-26] MEDS: ACCU-CHEK COMFORT CURVE STRIP VI SCH ×3 (05:32→17:39)
[2022-06-26] MEDS: InsuLIN REG 1unit/0.01ml Soln (100units/ml) SC SCH ×3 (05:32→18:00)
[2022-06-26] MEDS: INSULIN LANTUS (GLARGINE) 1 /0.01ml (100units/ml) SC SCH (05:33)
[2022-06-26 09:00] VITALS: BP 135/84
[2022-06-26] MEDS: FLUCONAZOLE 100 MG TAB PO SCH (10:36)
[2022-06-26] MEDS: LINEZOLID 600MG/300ML 300 ML IV SCH ×2 (10:37→21:34)
[2022-06-26 13:00] VITALS: BP 135/80
[2022-06-26 17:00] VITALS: BP 138/82
[2022-06-26] MEDS: TEMAZEPAM 15 MG CAP PO PRN (21:34)
[2022-06-26 22:00] VITALS: BP 156/86
[2022-06-27] MEDS: INSULIN LANTUS (GLARGINE) 1 /0.01ml (100units/ml) SC SCH ×3 (00:01→22:19)
[2022-06-27 05:00] VITALS: BP 156/85
[2022-06-27] MEDS: PIPERACILLIN-TAZOB 3.375GM 100 ML IV SCH ×3 (05:28→22:15)
[2022-06-27] MEDS: InsuLIN REG 1unit/0.01ml Soln (100units/ml) SC SCH ×5 (06:00→23:50)
[2022-06-27 06:22] VITALS: BP 152/80
[2022-06-27] MEDS: ACCU-CHEK COMFORT CURVE STRIP VI SCH ×5 (06:23→23:50)
[2022-06-27 09:00] VITALS: BP 114/79
[2022-06-27] MEDS: LINEZOLID 600MG/300ML 300 ML IV SCH ×2 (10:43→22:16)
[2022-06-27] MEDS: FLUCONAZOLE 100 MG TAB PO SCH (10:43)
[2022-06-27 13:00] VITALS: BP 120/75
[2022-06-27 17:04] VITALS: BP 118/85
[2022-06-27 22:00] VITALS: BP 124/79
[2022-06-27] MEDS: TEMAZEPAM 15 MG CAP PO PRN (22:56)
[2022-06-28 05:00] VITALS: BP 135/79
[2022-06-28] MEDS: InsuLIN REG 1unit/0.01ml Soln (100units/ml) SC SCH ×4 (06:00→23:26)
[2022-06-28] MEDS: PIPERACILLIN-TAZOB 3.375GM 100 ML IV SCH ×3 (06:20→22:45)
[2022-06-28] MEDS: ACCU-CHEK COMFORT CURVE STRIP VI SCH ×4 (07:00→23:25)
[2022-06-28] MEDS: INSULIN LANTUS (GLARGINE) 1 /0.01ml (100units/ml) SC SCH ×2 (07:01→23:26)
[2022-06-28 09:00] VITALS: BP 141/80
[2022-06-28] MEDS: FLUCONAZOLE 100 MG TAB PO SCH (09:13)
[2022-06-28] MEDS: LINEZOLID 600MG/300ML 300 ML IV SCH ×2 (09:13→22:45)
[2022-06-28 13:00] VITALS: BP 126/74
[2022-06-28 17:00] VITALS: BP 116/74
[2022-06-28 21:46] VITALS: BP 126/78
[2022-06-29 04:42] VITALS: BP 145/81
[2022-06-29] MEDS: InsuLIN REG 1unit/0.01ml Soln (100units/ml) SC SCH ×3 (06:00→18:34)
[2022-06-29] MEDS: ACCU-CHEK COMFORT CURVE STRIP VI SCH ×3 (06:24→18:00)
[2022-06-29] MEDS: PIPERACILLIN-TAZOB 3.375GM 100 ML IV SCH ×3 (06:24→18:35)
[2022-06-29] MEDS: INSULIN LANTUS (GLARGINE) 1 /0.01ml (100units/ml) SC SCH ×2 (06:26→22:38)
[2022-06-29 09:00] VITALS: BP 129/77
[2022-06-29] MEDS: LINEZOLID 600MG/300ML 300 ML IV SCH ×2 (09:31→22:40)
[2022-06-29] MEDS: FLUCONAZOLE 100 MG TAB PO SCH (09:31)
[2022-06-29 12:49] VITALS: BP 145/89
[2022-06-29 17:00] VITALS: BP 140/77
[2022-06-29 21:59] VITALS: BP 131/74
[2022-06-30] MEDS: ACCU-CHEK COMFORT CURVE STRIP VI SCH ×5 (00:45→23:43)
[2022-06-30] MEDS: InsuLIN REG 1unit/0.01ml Soln (100units/ml) SC SCH ×5 (00:51→23:45)
[2022-06-30 04:46] VITALS: BP 141/86
[2022-06-30] MEDS: PIPERACILLIN-TAZOB 3.375GM 100 ML IV SCH ×3 (05:24→21:30)
[2022-06-30] MEDS: INSULIN LANTUS (GLARGINE) 1 /0.01ml (100units/ml) SC SCH ×2 (05:59→21:29)
[2022-06-30 09:00] VITALS: BP 135/76
[2022-06-30] MEDS: LINEZOLID 600MG/300ML 300 ML IV SCH (09:21)
[2022-06-30] MEDS: FLUCONAZOLE 100 MG TAB PO SCH (09:21)
[2022-06-30 13:13] VITALS: BP 129/77
[2022-06-30 17:00] VITALS: BP 142/84
[2022-06-30] MEDS: LINEZOLID 600MG TABLET PO SCH (21:30)
[2022-06-30 22:00] VITALS: BP 125/72
[2022-07-01 05:00] VITALS: BP 154/92
[2022-07-01] MEDS: InsuLIN REG 1unit/0.01ml Soln (100units/ml) SC SCH ×3 (05:42→18:49)
[2022-07-01] MEDS: ACCU-CHEK COMFORT CURVE STRIP VI SCH ×4 (05:42→23:58)
[2022-07-01] MEDS: PIPERACILLIN-TAZOB 3.375GM 100 ML IV SCH ×3 (05:42→21:09)
[2022-07-01] MEDS: INSULIN LANTUS (GLARGINE) 1 /0.01ml (100units/ml) SC SCH ×2 (06:12→21:10)
[2022-07-01 08:33] VITALS: BP 128/78
[2022-07-01] MEDS: FLUCONAZOLE 100 MG TAB PO SCH (10:05)
[2022-07-01] MEDS: LINEZOLID 600MG TABLET PO SCH ×2 (10:05→21:09)
[2022-07-01 13:00] VITALS: BP 143/88
[2022-07-01 17:00] VITALS: BP 147/90
[2022-07-01 22:00] VITALS: BP 150/77
[2022-07-02] MEDS: InsuLIN REG 1unit/0.01ml Soln (100units/ml) SC SCH ×4 (00:02→18:02)
[2022-07-02 05:00] VITALS: BP 141/84
[2022-07-02] MEDS: PIPERACILLIN-TAZOB 3.375GM 100 ML IV SCH ×3 (05:34→21:55)
[2022-07-02] MEDS: ACCU-CHEK COMFORT CURVE STRIP VI SCH ×3 (05:58→16:40)
[2022-07-02] MEDS: INSULIN LANTUS (GLARGINE) 1 /0.01ml (100units/ml) SC SCH ×2 (06:04→21:57)
[2022-07-02 09:00] VITALS: BP 130/72
[2022-07-02] MEDS: LINEZOLID 600MG TABLET PO SCH ×2 (09:44→22:26)
[2022-07-02] MEDS: FLUCONAZOLE 100 MG TAB PO SCH (09:44)
[2022-07-02 13:00] VITALS: BP 143/90
[2022-07-02 16:30] VITALS: BP 135/65
[2022-07-02 22:00] VITALS: BP 128/80
[2022-07-03] MEDS: ACCU-CHEK COMFORT CURVE STRIP VI SCH ×5 (00:12→22:07)
[2022-07-03] MEDS: InsuLIN REG 1unit/0.01ml Soln (100units/ml) SC SCH ×5 (00:13→22:10)
[2022-07-03 05:00] VITALS: BP 145/87
[2022-07-03] MEDS: PIPERACILLIN-TAZOB 3.375GM 100 ML IV SCH ×3 (05:58→21:19)
[2022-07-03] MEDS: INSULIN LANTUS (GLARGINE) 1 /0.01ml (100units/ml) SC SCH ×2 (05:59→22:11)
[2022-07-03 09:00] VITALS: BP 131/72
[2022-07-03] MEDS: FLUCONAZOLE 100 MG TAB PO SCH (11:13)
[2022-07-03] MEDS: LINEZOLID 600MG TABLET PO SCH ×2 (11:17→21:21)
[2022-07-03 13:00] VITALS: BP 140/105
[2022-07-03 17:00] VITALS: BP 131/84
[2022-07-03 22:00] VITALS: BP 139/87
[2022-07-04 05:00] VITALS: BP 129/79
[2022-07-04] MEDS: ACCU-CHEK COMFORT CURVE STRIP VI SCH ×3 (05:14→18:10)
[2022-07-04] MEDS: PIPERACILLIN-TAZOB 3.375GM 100 ML IV SCH ×2 (05:15→14:18)
[2022-07-04] MEDS: InsuLIN REG 1unit/0.01ml Soln (100units/ml) SC SCH ×3 (05:28→18:13)
[2022-07-04] MEDS: INSULIN LANTUS (GLARGINE) 1 /0.01ml (100units/ml) SC SCH ×2 (05:28→22:33)
[2022-07-04 09:00] VITALS: BP 132/75
[2022-07-04] MEDS: FLUCONAZOLE 100 MG TAB PO SCH (11:01)
[2022-07-04] MEDS: LINEZOLID 600MG TABLET PO SCH (11:01)
[2022-07-04 13:00] VITALS: BP 160/98
[2022-07-04 17:05] VITALS: BP 154/90
[2022-07-04 22:00] VITALS: BP 137/83
[2022-07-05 05:00] VITALS: BP 160/89
[2022-07-05] MEDS: InsuLIN REG 1unit/0.01ml Soln (100units/ml) SC SCH ×4 (06:00→17:58)
[2022-07-05] MEDS: ACCU-CHEK COMFORT CURVE STRIP VI SCH ×4 (06:07→17:56)
[2022-07-05 06:20] VITALS: BP 136/77
[2022-07-05 06:37] LABS: Basophils # (auto) 0.1 10 ^3/uL (0-0.2); Basophils % (auto) 1.3 % (0.0-2.0); Eosinophils # (auto) 0.1 10 ^3/uL (0-0.8); Eosinophils % (auto) 2.1 % (0.0-7.0); Hematocrit 27.3 % (36.0-46.0); Lymphocytes # (auto) 2.9 10 ^3/uL (0.4-5.4); Lymphocytes % (auto) 42.9 % (10.0-50.0); Mean Corpuscular Hemoglobin 26.7 pg (28.0-32.0); Mean Corpuscular Hgb Conc. 32.8 g/dL (32.0-36.0); Mean Corpuscular Volume 81.4 fL (80.0-100.0); Monocytes # (auto) 0.8 10 ^3/uL (0-1.3); Monocytes % (auto) 11.9 % (0.0-12.0); Neutrophils # (auto) 2.8 10 ^3/uL (1.6-8.6); Neutrophils % (auto) 41.8 % (37.0-80.0); Red Blood Cells 3.36 10^6/uL (4.0-5.20); White Blood Cell 6.7 10^3/uL (4.4-10.8)
[2022-07-05] MEDS: INSULIN LANTUS (GLARGINE) 1 /0.01ml (100units/ml) SC SCH ×2 (06:44→22:41)
[2022-07-05 07:12] LABS: Albumin 2.6 g/dL (3.4-5.0); BUN/Creatinine Ratio 19.5; Bilirubin, Total 0.2 mg/dL (0.2-1.0); Calcium 8.9 mg/dL (8.5-10.1); Total Protein 6.7 g/dL (6.4-8.2)
[2022-07-05 09:00] VITALS: BP 136/86
[2022-07-05 13:00] VITALS: BP 136/87
[2022-07-05 17:18] VITALS: BP 143/82
[2022-07-05 22:00] VITALS: BP 128/70
[2022-07-06] MEDS: ACCU-CHEK COMFORT CURVE STRIP VI SCH ×5 (00:11→23:30)
[2022-07-06] MEDS: InsuLIN REG 1unit/0.01ml Soln (100units/ml) SC SCH ×5 (00:12→23:31)
[2022-07-06 05:00] VITALS: BP 124/87
[2022-07-06] MEDS: INSULIN LANTUS (GLARGINE) 1 /0.01ml (100units/ml) SC SCH ×2 (06:58→22:00)
[2022-07-06 08:41] VITALS: BP 134/85
[2022-07-06 13:00] VITALS: BP 140/81
[2022-07-06 17:00] VITALS: BP 138/75
[2022-07-06 22:00] VITALS: BP 134/82
[2022-07-07 05:00] VITALS: BP 148/83
[2022-07-07] MEDS: ACCU-CHEK COMFORT CURVE STRIP VI SCH ×3 (06:00→18:07)
[2022-07-07] MEDS: InsuLIN REG 1unit/0.01ml Soln (100units/ml) SC SCH ×3 (06:00→18:00)
[2022-07-07] MEDS: INSULIN LANTUS (GLARGINE) 1 /0.01ml (100units/ml) SC SCH ×2 (07:00→22:01)
[2022-07-07 08:41] VITALS: BP 140/96
[2022-07-07 13:06] VITALS: BP 145/86
[2022-07-07 17:00] VITALS: BP 130/88
[2022-07-07 22:00] VITALS: BP 129/85
[2022-07-08 05:00] VITALS: BP 132/78
[2022-07-08] MEDS: InsuLIN REG 1unit/0.01ml Soln (100units/ml) SC SCH ×5 (06:00→23:03)
[2022-07-08] MEDS: ACCU-CHEK COMFORT CURVE STRIP VI SCH ×5 (06:28→23:00)
[2022-07-08] MEDS: INSULIN LANTUS (GLARGINE) 1 /0.01ml (100units/ml) SC SCH ×2 (07:00→23:02)
[2022-07-08 09:03] VITALS: BP 148/91
[2022-07-08 13:18] VITALS: BP 164/77
[2022-07-08 22:00] VITALS: BP 162/85
[2022-07-08] MEDS: ACETAMINOPHEN 500 MG TAB PO PRN (22:53)
[2022-07-08 22:54] VITALS: BP 140/87
[2022-07-09 05:00] VITALS: BP 148/85
[2022-07-09] MEDS: InsuLIN REG 1unit/0.01ml Soln (100units/ml) SC SCH ×4 (06:00→23:37)
[2022-07-09] MEDS: ACCU-CHEK COMFORT CURVE STRIP VI SCH ×4 (06:03→23:34)
[2022-07-09] MEDS: INSULIN LANTUS (GLARGINE) 1 /0.01ml (100units/ml) SC SCH ×2 (06:04→23:34)
[2022-07-09 08:25] VITALS: BP 134/92
[2022-07-09 12:35] VITALS: BP 151/91
[2022-07-09 16:20] VITALS: BP 136/84
[2022-07-09 22:00] VITALS: BP 148/86
[2022-07-10 05:00] VITALS: BP 132/85
[2022-07-10] MEDS: InsuLIN REG 1unit/0.01ml Soln (100units/ml) SC SCH ×4 (06:00→23:21)
[2022-07-10] MEDS: ACCU-CHEK COMFORT CURVE STRIP VI SCH ×4 (06:22→23:00)
[2022-07-10] MEDS: INSULIN LANTUS (GLARGINE) 1 /0.01ml (100units/ml) SC SCH ×2 (06:23→23:01)
[2022-07-10 09:00] VITALS: BP 116/74
[2022-07-10 13:00] VITALS: BP 110/63
[2022-07-10 22:00] VITALS: BP 135/86
[2022-07-11 05:00] VITALS: BP 132/87
[2022-07-11] MEDS: ACCU-CHEK COMFORT CURVE STRIP VI SCH (06:00)
[2022-07-11] MEDS: InsuLIN REG 1unit/0.01ml Soln (100units/ml) SC SCH (06:00)
[2022-07-11] MEDS: INSULIN LANTUS (GLARGINE) 1 /0.01ml (100units/ml) SC SCH (06:03)
[2022-07-11 09:00] VITALS: BP 139/89
[2022-07-11 11:16] VITALS: BP 131/84
== END 2022-07-11 11:30 | DRG 720 ==
LOC: EDBD 08:47 → ER 08:47 → TELE 14:31 → ICU WEST 15:28 → TELE-EAST 06-08 05:23 → EAST 06-11 12:11
PROVIDERS: ADMIT Internal Medicine; ATTEND Internal Medicine
PROC: 5A1955Z Respiratory Ventilation, Greater than 96 Consecutive Hours (ICD-10-PCS; principal; 2022-05-21)
PROC: 0BH17EZ Insertion of Endotracheal Airway into Trachea, Via Natural or Artificial Opening (ICD-10-PCS; 2022-05-21)
PROC: 02HV33Z Insertion of Infusion Device into Superior Vena Cava, Percutaneous Approach (ICD-10-PCS; 2022-05-22)
PROC: B548ZZA Ultrasonography of Superior Vena Cava, Guidance (ICD-10-PCS; 2022-05-22)
PROC: 5A1D70Z Performance of Urinary Filtration, Intermittent, Less than 6 Hours Per Day (ICD-10-PCS; 2022-05-24)
PROC: 0T9B70Z Drainage of Bladder with Drainage Device, Via Natural or Artificial Opening (ICD-10-PCS; 2022-05-26)
PROC: 30233N1 Transfusion of Nonautologous Red Blood Cells into Peripheral Vein, Percutaneous Approach (ICD-10-PCS; 2022-05-27)
PROC: 5A1D70Z Performance of Urinary Filtration, Intermittent, Less than 6 Hours Per Day (ICD-10-PCS; 2022-05-27)
PROC: 0JBL0ZX Excision of Right Upper Leg Subcutaneous Tissue and Fascia, Open Approach, Diagnostic (ICD-10-PCS; 2022-05-28)
PROC: 5A1D70Z Performance of Urinary Filtration, Intermittent, Less than 6 Hours Per Day (ICD-10-PCS; 2022-05-29)
PROC: 5A1D70Z Performance of Urinary Filtration, Intermittent, Less than 6 Hours Per Day (ICD-10-PCS; 2022-05-30)
PROC: 5A1D70Z Performance of Urinary Filtration, Intermittent, Less than 6 Hours Per Day (ICD-10-PCS; 2022-05-31)
PROC: 5A1D70Z Performance of Urinary Filtration, Intermittent, Less than 6 Hours Per Day (ICD-10-PCS; 2022-06-02)
PROC: 5A1D70Z Performance of Urinary Filtration, Intermittent, Less than 6 Hours Per Day (ICD-10-PCS; 2022-06-04)
PROC: 5A1D70Z Performance of Urinary Filtration, Intermittent, Less than 6 Hours Per Day (ICD-10-PCS; 2022-06-05)
PROC: 5A1D70Z Performance of Urinary Filtration, Intermittent, Less than 6 Hours Per Day (ICD-10-PCS; 2022-06-07)
PROC: 0JBL0ZZ Excision of Right Upper Leg Subcutaneous Tissue and Fascia, Open Approach (ICD-10-PCS; 2022-06-15)
DX: A41.02 Sepsis due to Methicillin resistant Staphylococcus aureus (principal); J96.01 Acute respiratory failure with hypoxia; N17.0 Acute kidney failure with tubular necrosis; G92.8 Other toxic encephalopathy; R65.21 Severe sepsis with septic shock; E11.10 Type 2 diabetes mellitus with ketoacidosis without coma; I21.4 Non-ST elevation (NSTEMI) myocardial infarction; D69.6 Thrombocytopenia, unspecified; E83.39 Other disorders of phosphorus metabolism; E88.09 Other disorders of plasma-protein metabolism, not elsewhere classified; Z20.822 Contact with and (suspected) exposure to COVID-19; E78.5 Hyperlipidemia, unspecified; E87.6 Hypokalemia; B95.2 Enterococcus as the cause of diseases classified elsewhere; L03.317 Cellulitis of buttock; K61.1 Rectal abscess; E11.22 Type 2 diabetes mellitus with diabetic chronic kidney disease; N18.9 Chronic kidney disease, unspecified; B37.49 Other urogenital candidiasis; D64.9 Anemia, unspecified; E66.9 Obesity, unspecified; L03.115 Cellulitis of right lower limb; S01.81XA Laceration without foreign body of other part of head, initial encounter; E83.42 Hypomagnesemia; N18.30 Chronic kidney disease, stage 3 unspecified; Z68.26 Body mass index [BMI] 26.0-26.9, adult
CPT/HCPCS: 31500; 36415; 36569; 36600; 70450; 71045; 72192; 74176; 76881; 80048; 80053; 80069; 80202; 80307; 80320; 81001; 82010; 82270; 82565; 82570; 82805; 82962; 83036; 83605; 83615; 83735; 83930; 84100; 84156; 84300; 84484; 84702; 85007; 85014; 85018; 85025; 85027; 85610; 85730; 86850; 86900; 86901; 86920; 87040; 87070; 87075; 87077; 87081; 87086; 87088; 87147; 87186; 87205; 87340; 87493; 90935; 92610; 93005; 93971; 94002; 94003; 94640; 96365; 96366; 96367; 96368; 96372; 96375; 96376; 97110; 97116; 97163; 97530; 99291; A4618; C9113; G0378; J0690; J0696; J1100; J1450; J1642; J1815; J2250; J2405; J2543; J2704; J3480; J3490; J7060